=== PATIENT | male | born 1995 | race Caucasian/White ===

== ENCOUNTER 2021-01-28 11:50 | Inpatient (IN) | payer OTHER ==
[~2021-01-28] VITALS: Ht 167.6 cm; Wt 61.8 kg
[2021-01-28 14:05] VITALS: BP 132/75
--- NOTE | 2021-01-28 14:43 | NUR ---
MS RN ADMITTING NOTES PT ADMITTED TO UNIT AT 1400 AMBULATORY ACCOMPANIED BY KRISTY FROM DR ZAMORA OFFICE. PT IS A/O X4. ABLE TO MAKE NEEDS KNOWN, DENIES PAIN OR DISCOMFORTS. DENIES S/I/HI BUT VERBALIZED THAT SOMETIMES HE HAS AUDITORY HALLUCINATION, NONE AT THIS TIME. ORIENTED TO UNIT AND STAFF. PT ON ROOM AIR, BREATHING EVEN AND UNLABORED. PT IS SMOKER. NO IV ACCESS PER CLINICAL TRIAL PROTOCOL. ALL BELONGINGS CHECKED, COUNTED AND SIGNED FORM. SAFETY MEASURES INITIATED: BED PLACED IN LOWEST LOCKED POSITION WITH SR UP X2. CALL LIGHT PLACED W/IN EASY REACH OF PT. WILL CONTINUE MONITOR PT.
[2021-01-28] MEDS ORDERED: IBUPROFEN 200 MG TABLET PO PRN (15:30)
[2021-01-28] MEDS ORDERED: ZOLPIDEM TARTRATE 10 MG TABLET PO PRN (15:30)
[2021-01-28] MEDS ORDERED: MAGNESIUM HYDROXIDE 30 ML UDC PO PRN (15:30)
[2021-01-28 16:00] VITALS: BP 122/77
[2021-01-28] MEDS ORDERED: OLAN10TA3 PO (16:15)
[2021-01-28] MEDS ORDERED: ACET-2605 PO (16:15)
[2021-01-28] MEDS ORDERED: CALC355O18 PO (16:15)
[2021-01-28] MEDS ORDERED: ZOLP5TAB8 PO (16:15)
[2021-01-28] MEDS ORDERED: MAGN400O6 PO (16:15)
[2021-01-28] MEDS ORDERED: LORA-259 PO (16:15)
[2021-01-28] MEDS ORDERED: QUET200T PO (16:15)
[2021-01-28] MEDS ORDERED: IBUP-1953 PO (16:15)
--- NOTE | 2021-01-28 18:50 | NUR ---
MS RN CLOSING NOTES PATIENT WAS PLACED IN BED COMFORTABLY, BED IN LOW POSITION, CALL LIGHTS WITHIN REACH, AMBULATORY, ALERT AND ORIENTED X4, ABLE TO MAKE NEEDS KNOWN, DENIES PAIN OR DISCOMFORTS AT THIS TIME, V/S ARE WITHIN NORMAL RANGE, ON ROOM AIR, BREATHING EVEN AND UNLABORED. PT IS SMOKER. SAFETY MEASURES INITIATED: BED PLACED IN LOWEST LOCKED POSITION WITH SR UP X2. CALL LIGHT PLACED W/IN EASY REACH, KEPT CLEAN AND DRY, ALL NEEDS MET, ENDORSED TO INCOMING SHIFT.
[2021-01-28 20:00] VITALS: BP 124/74
[2021-01-28] MEDS: OLANZAPINE 5 MG PO SCH (21:49)
[2021-01-28] MEDS: SEROQUEL 100 MG PO SCH (21:49)
--- NOTE | 2021-01-29 07:15 | NUR ---
MS RN OPENING NOTES RECEIVED PATIENT AWAKE ON BED AT THIS TIME. PATIENT ALERT AND ORIENTED X 4. PATIENT ON ROOM AIR, NO SIGNS OF DISTRESS NOTED. NO COMPLAINT OF PAIN. ON MODERATE TO HIGH BACK REST. SAFETY PRECAUTIONS IN PLACE AND MAINTAINED AT ALL TIMES. BED IN LOWEST LOCKED POSITION. SAFETY PRECAUTIONS IN PLACE AND MAINTAINED AT ALL TIMES. CALL LIGHT AND TABLE WITHIN REACH AT ALL TIMES. WILL CONTINUE TO MONITOR PATIENT.
[2021-01-29 08:00] VITALS: BP 115/68
[2021-01-29 16:00] VITALS: BP 123/77
--- NOTE | 2021-01-29 18:45 | NUR ---
MS RN CLOSING NOTE PT AWAKE IN BED AT THIS TIME. PT REMAINED STABLE THROUGHOUT SHIFT. NEEDS ATTENDED. PT KEPT CLEAN AND DRY. SAFETY PRECAUTIONS IN PLACE AND MAINTAINED AT ALL TIMES. BED IN LOWEST LOCKED POSITION, HOB ELEVATED, SIDE RAILS UP FOR SAFETY. CALL LIGHT AND TABLE WITHIN REACH. WILL ENDORSE TO SUBEDITOR NURSE FOR CONTINUITY OF CARE.
--- NOTE | 2021-01-29 19:30 | NUR ---
MS RN OPENING NOTE PATIENT IS SITTING ON THE BED ON HIS PHONE, PATIENT IS CALM AT THIS TIME. BREATHING EVEN AND UNLABORED, NO S/S OF ANY DISTRESS. PATIENT DOES NOT COMPLAIN OF ANY PAIN OR DISCOMFORT. SAFETY MEASURES IN PLACE: BED IN LOCKED AND LOWEST POSITION, CALL LIGHT WITHIN REACH, SIDE RAILS UP. WILL MONITOR PATIENT CLOSELY.
[2021-01-29 20:00] VITALS: BP 126/83
[2021-01-29] MEDS: OLANZAPINE 5 MG PO SCH (20:47)
[2021-01-29] MEDS: SEROQUEL 100 MG PO SCH (20:48)
--- NOTE | 2021-01-29 20:50 | NUR ---
MS RN NOTE PATIENT REQUESTED HIS SEROQUEL AND OLANZAPINE AT AN EARLIER TIME THAN SCHEDULED. CHARGE NURSE AWARE.
--- NOTE | 2021-01-30 06:46 | NUR ---
MS RN CLOSING NOTE PATIENT IS STILL IN BED SLEEPING AT THIS TIME. TOLERATING ROOM AIR, BREATHING EVEN AND UNLABORED. PATIENT DOES NOT COMPLAIN OF ANY PAIN OR DISCOMFORT. SAFETY MEASURES MAINTAINED: BED IN LOCKED AND LOWEST POSITION, CALL LIGHT WITHIN REACH, SIDE RAILS UP. ALL NEEDS MET AND ATTENDED. ALL ORDERS CARRIED OUT. WILL ENDORSE TO DAY SHIFT NURSE FOR JOEL.
[2021-01-30 08:00] VITALS: BP 120/75
--- NOTE | 2021-01-30 08:00 | NUR ---
m/s nursery laborer: notes received pt in bed awake, a/ox4. no c/o pain or any discomfort. no distress noted. instructed to call for assistance. will continue to monitor.
--- NOTE | 2021-01-30 15:00 | NUR ---
m/s metalizer field operation: notes report given to chelsie (rn) for continuity of care.
--- NOTE | 2021-01-30 15:03 | NUR ---
RECEIVED REPORT FROM ABHIJEET RYDER AT THIS TIME. PT IN ROOM AOX4 WITH FAMILY AT BED SIDE. SAFETY MEASURES IN PLACE. WILL CONTINUE WITH PLAN OF CARE
[2021-01-30 16:00] VITALS: BP 118/77
[2021-01-30] MEDS: LORAZEPAM 1 MG TABLET FOR AGITATION/ANXIETY/HOSTILITY PO PRN (16:01)
--- NOTE | 2021-01-30 16:02 | NUR ---
PT C/O FEELING ANXIOUS. VS WNL. PER PATIENT REQUEST, ATIVAN 1MG PO Q6H FOR AGITATION/ANXIETY/HOSTILITY. ADMINISTERED AT THIS TIME PER ORDER. WILL CONTINUE TO MONITOR.
--- NOTE | 2021-01-30 18:17 | NUR ---
MS RN CLOSING NOTES PT AWAKE IN BED AT THIS TIME. PT REMAINED STABLE THROUGHOUT SHIFT. ALL PT NEEDS MET AND ATTENDED. NO C/O OF AKATHISIA, TREMORS OR EPS. NO MENTAL INSTABILITY NOTED. PT DENIES SI/HI, VISUAL OR AUDITORY HALLUCINATION. SAFETY PRECAUTIONS IN PLACE AND MAINTAINED AT ALL TIMES. BED IN LOWEST LOCKED POSITION, HOB ELEVATED, SIDE RAILS UPX2, CALL LIGHT AND TABLE WITHIN REACH. WILL ENDORSE TO APPAREL EMBROIDERY DIGITIZER NURSE FOR JOEL
--- NOTE | 2021-01-30 19:15 | NUR ---
MS RN OPENING NOTE PATIENT IN BED LAYING DOWN ON HIS PHONE, A/O X 4. BREATHING EVEN AND UNLABORED TOLERATING ROOM AIR. PATIENT IS CALM AT THIS TIME. ABLE TO MAKE NEEDS KNOWN, AMBULATORY, AND INDEPENDENT. PATIENT DOES NOT COMPLAIN OF ANY PAIN OR DISCOMFORT AT THIS TIME. SAFETY MEASURES IN PLACE: CALL LIGHT WITHIN REACH, BED IN LOCKED AND LOWEST POSITION, SIDE RAILS UP. WILL MONITOR PATIENT CLOSELY DURING THE SHIFT.
[2021-01-30 20:00] VITALS: BP 116/85
[2021-01-30] MEDS ORDERED: OLANZAPINE 5 MG PO SCH (22:00)
[2021-01-30] MEDS ORDERED: QUETIAPINE 100 MG PO SCH (22:00)
--- NOTE | 2021-01-31 06:58 | NUR ---
MS RN CLOSING NOTE PATIENT STILL ASLEEP, BREATHING EVEN AND UNLABORED. TOLERATING ROOM AIR. PATIENT WAS CALM AND COOPERATIVE THROUGH THE SHIFT. NO COMPLAINS OF PAIN OR DISCOMFORT AT THIS TIME. ALL NEEDS MET AND ATTENDED. ALL ORDERS CARRIED OUT. WILL ENDORSE TO DAY SHIFT NURSE FOR JOEL.
[2021-01-31 08:00] VITALS: BP 110/72
--- NOTE | 2021-01-31 08:00 | NUR ---
MS RN OPENING NOTE PATIENT IN BED, ALERT AND ORIENTED X4. ABLE TO MAKE NEEDS KNOWN, AMBULATORY, AND INDEPENDENT. NO SHORTNESS OF BREATH NOTED. ON ROOM AIR. PATIENT DOES NOT COMPLAIN OF ANY PAIN OR DISCOMFORT AT THIS TIME. NO EPS OR S/S OF PSYCH INSTABILITY NOTED AT THIS TIME. SAFETY MEASURES IN PLACE: CALL LIGHT WITHIN REACH, BED IN LOCKED AND LOWEST POSITION, SIDE RAILS UP. WILL MONITOR PATIENT.
[2021-01-31] MEDS ORDERED: BLOOD SUGAR DIAGNOSTIC 1 EACH STRIP IN SCH (12:00)
[2021-01-31 16:06] VITALS: BP 122/80
--- NOTE | 2021-01-31 19:28 | NUR ---
MS RN CLOSING NOTE PATIENT IS ALERT AND ORIENTED X4, PATIENT IN NO APPARENT RESPIRATORY DISTRESS NOTED. TOLERATING ROOM AIR. PATIENT WAS CALM AND COOPERATIVE THROUGH THE SHIFT. NO COMPLAINS OF PAIN OR DISCOMFORT AT THIS TIME. ALL NEEDS MET AND ATTENDED. WILL ENDORSE TO FAST FOOD SHIFT SUPERVISOR NURSE FOR JOEL.
--- NOTE | 2021-01-31 19:40 | NUR ---
MS RN OPENING NOTES PATIENT WAS LAST SEEN AWAKE IN BED. PATIENT IS ALERT AND ORIENTED X4. PATIENT IS ON ROOM AIR WITH NO RESPIRATORY DISTRESS NOTED. SAFETY PRECAUTIONS IMPLEMENTED. BED LOCKED. SIDE RAILS UP X2. CALL LIGHT IS WITHIN REACH OF THE PATIENT. WILL CONTINUE TO MONITOR THE PATIENT.
[2021-01-31 20:00] VITALS: BP 130/81
[2021-01-31] MEDS ORDERED: OLANZAPINE 5 MG PO SCH (22:00)
[2021-01-31] MEDS ORDERED: QUETIAPINE 100 MG PO SCH (22:00)
--- NOTE | 2021-02-01 07:56 | NUR ---
MS RN CLOSING NOTES PATIENT WAS LAST SEEN SLEEPING IN BED. PATIENT IS ALERT AND ORIENTED X4. PATIENT IS ON ROOM AIR WITH NO RESPIRATORY DISTRESS NOTED. SAFETY PRECAUTIONS IMPLEMENTED. BED LOCKED. SIDE RAILS UP X2. CALL LIGHT IS WITHIN REACH OF THE PATIENT. ENDORSED CARE TO DAY SHIFT NURSE.
[2021-02-01 08:00] VITALS: BP 119/74
[2021-02-01 16:00] VITALS: BP 127/72
--- NOTE | 2021-02-01 18:50 | NUR ---
MS/RN CLOSING NOTES PATIENT IN BED. A CLINICAL TRIAL PATIENT. IS ALERT AND ORIENTED X4. ABLE TO MAKE NEEDS KNOWN, AMBULATORY, AND INDEPENDENT. NO SHORTNESS OF BREATH NOTED. ON ROOM AIR. PATIENT DOES NOT COMPLAIN OF ANY PAIN OR DISCOMFORT AT THIS TIME. NO EPS OR S/S OF PSYCH INSTABILITY NOTED THROUGHOUT THE SHIFT. SAFETY MEASURES KEPT IN PLACE: CALL LIGHT WITHIN REACH, BED IN LOCKED AND LOWEST POSITION, SIDE RAILS UP. WILL ENDORSE TO THE NEXT SHIFT FOR CONTINUITY OF CARE.
[2021-02-01 20:00] VITALS: BP 115/70
[2021-02-01] MEDS: LORAZEPAM 1 MG TABLET FOR AGITATION/ANXIETY/HOSTILITY PO PRN (21:27)
--- NOTE | 2021-02-02 07:52 | NUR ---
MS RN CLOSING NOTES PATIENT WAS LAST SEEN AWAKE IN BED. PATIENT IS ALERT AND ORIENTED X4. PATIENT IS ON ROOM AIR WITH NO RESPIRATORY DISTRESS NOTED. SAFETY PRECAUTIONS IMPLEMENTED. BED LOCKED. SIDE RAILS UP X2. CALL LIGHT IS WITHIN REACH OF THE PATIENT.ENDORSED CARE TO DAY SHIFT NURSE.
[2021-02-02 08:00] VITALS: BP 120/76
--- NOTE | 2021-02-02 10:02 | NUR ---
MSRN OPENING NOTES PATIENT AWAKE IN BED. PATIENT IS ALERT AND ORIENTED X4. PATIENT IS ON ROOM AIR WITH NO RESPIRATORY DISTRESS NOTED. SAFETY PRECAUTIONS IMPLEMENTED. BED LOCKED. SIDE RAILS UP X2. CALL LIGHT IS WITHIN REACH OF THE PATIENT. WILL MONITOR PATIENT
[2021-02-02 16:00] VITALS: BP 119/73
--- NOTE | 2021-02-02 18:47 | NUR ---
MSRN CLOSING NOTES PATIENT AWAKE IN BED. PATIENT IS ALERT AND ORIENTED X4. PATIENT IS ON ROOM AIR WITH NO RESPIRATORY DISTRESS NOTED. SAFETY PRECAUTIONS IMPLEMENTED. BED LOCKED. SIDE RAILS UP X2. CALL LIGHT IS WITHIN REACH OF THE PATIENT. WILL MONITOR PATIENT
--- NOTE | 2021-02-02 19:15 | NUR ---
MS RN OPENING NOTE PATIENT IN BED SITTING AT THE EDGE OF THE BED, AWAKE USING HIS PHONE. PATIENT SEEMS TO BE CALM AT THIS TIME. EDUCATED PATIENT NOT TO EAT OR DRINK ANYTHING STARTING AT 2200. BREATHING EVEN AND UNLABORED. SAFETY MEASURES IN PLACE; SIDE RAILS UP, BED IN LOCKED AND LOWEST POSITION, CALL LIGHT WITHIN REACH. WILL MONITOR PATIENT CLOSELY.
[2021-02-02 20:00] VITALS: BP 119/63
--- NOTE | 2021-02-03 07:30 | NUR ---
RN CLOSING NOTE PATIENT IN NO ACUTE DISTRESS. SAFETY MEASURES MAINTAINED. ALL ORDERS CARRIED OUT. ENDORSED TO DAY SHIFT NURSE FOR JOEL.
[2021-02-03 08:00] VITALS: BP 121/85
--- NOTE | 2021-02-03 08:07 | NUR ---
RN OPENING NOTES RECEIVED PATIENT BED, WAKING UP. ALERT AND ORIENTED X4. NO ACUTE DISTRESS NOTED. NO C/O PAINS AT THIS TIME. SAFETY MEASURES IMPLEMENTED. BED LOCKED WITH SIDE RAILS UP X2. CALL LIGHT IS WITHIN REACH. WILL CONTINUE TO MONITOR THROUGHOUT SHIFT.
[2021-02-03 15:56] VITALS: BP 107/51
--- NOTE | 2021-02-03 16:30 | NUR ---
MS RN NOTES PATIENT AWAKE IN ROOM. RE-EDUCATED PATIENT REGARDING INVESTIGATIONAL DRUG, NPO 2.5 HOURS BEFORE AND NPO 2.5 HOURS AFTER DOSE AT 2100. PATIENT AWARE AND VERBALIZED UNDERSTANDING.
--- NOTE | 2021-02-03 18:28 | NUR ---
MS RN NOTES PATIENT AWAKE IN BED. ALERT AND ORIENTED X 4, STABLE ON ROOM AIR. BREATHING IS REGULAR AND UNLABORED. NO SIGNS OR SYMPTOMS OF DISTRESS. NO C/O PAIN AT THIS TIME. SAFETY MEASURES IN PLACE. BED AT LOWEST POSITION WITH SIDE RAILS UP X 2. CALL LIGHT IS WITHIN REACH. ALL NEEDS ATTENDED TO AND MET. WILL ENDORSE CONTINUITY OF CARE TO ONCOMING SHIFT.
--- NOTE | 2021-02-03 19:30 | NUR ---
MS RN OPENING NOTE PATIENT LAYING IN BED, AWAKE. A/ O X 4. PATIENT CALM AT THIS TIME. EDUCATED PATIENT NOT TO EAT OR DRINK ANYTHING STARTING AT 2200. BREATHING EVEN AND UNLABORED. SAFETY MEASURES IN PLACE; SIDE RAILS UP, BED IN LOCKED AND LOWEST POSITION, CALL LIGHT WITHIN REACH. WILL MONITOR PATIENT CLOSELY.
[2021-02-03 20:00] VITALS: BP 106/66
--- NOTE | 2021-02-04 07:20 | NUR ---
MS RN OPENING NOTE RECEIVED PATIENT SLEEPING IN BED. EASILY AWAKENED. A/O X4. AMBULATORY. ON ROOM AIR, TOLERATING WELL. NO SOB NOTED. IN NO APPARENT DISTRESS. DENIES ANY PAIN OR DISCOMFORT AT THIS TIME. PT REMAINS NPO UNTIL BLOOD DRAW ORDERED. SAFETY MEASURES MAINTAINED. BED IN LOWEST POSITION, BRAKES LOCKED. SIDE RAILS UP X2. CALL LIGHT WITHIN REACH. WILL CONTINUE PLAN OF CARE.
[2021-02-04 08:00] VITALS: BP 114/73
--- NOTE | 2021-02-04 08:07 | NUR ---
MS RN CLOSING NOTE PATIENT RESTING, PATIENT CALM AT THIS TIME. NO COMPLAINS OF PAIN OR DISCOMFORT. BREATHING EVEN AND UNLABORED. SAFETY MEASURES IN PLACE; SIDE RAILS UP, BED IN LOCKED AND LOWEST POSITION, CALL LIGHT WITHIN REACH. WILL MONITOR PATIENT CLOSELY.
[2021-02-04] MEDS ORDERED: LORAZEPAM 1 MG TABLET FOR AGITATION/ANXIETY/HOSTILITY PO PRN (12:00)
[2021-02-04 16:00] VITALS: BP 111/61
--- NOTE | 2021-02-04 18:04 | NUR ---
MS RN CLOSING NOTE PATIENT RESTING IN BED. A/O X4. AMBULATORY. ON ROOM AIR, TOLERATING WELL. NO SOB NOTED. NO S/S OF RESPIRATORY DISTRESS. NO REPORTS OF PAIN OR DISCOMFORT AT THIS TIME. NO REPORTS OF TREMORS AND AKATHISIA. ALL NEEDS HAVE BEEN MET AND ATTENDED. SAFETY MEASURES MAINTAINED. BED IN LOWEST POSITION, BRAKES LOCKED. SIDE RAILS UP X2. CALL LIGHT WITHIN REACH. WILL ENDORSE CONTINUITY OF CARE TO ONCOMING SHIFT.
[2021-02-04 20:00] VITALS: BP 110/83
[2021-02-04] MEDS ORDERED: [UNRECOGNIZED DRUG - OTHER] PO SCH (21:00)
[2021-02-04] MEDS ORDERED: [UNRECOGNIZED DRUG - OTHER] PO SCH (21:00)
[2021-02-04] MEDS ORDERED: [UNRECOGNIZED DRUG - OTHER] PO SCH (21:00)
--- NOTE | 2021-02-04 21:06 | NUR ---
PT CONFIRMED NPO STATUS SINCE 6:30 PM. PT VERBALIZED UNDERSTANDING TO BE NPO TILL 11:30 PM
--- NOTE | 2021-02-04 21:30 | NUR ---
ativan administered as ordered per patient request. reports he feels anxious about starting study medication. will cont to monitor.
[2021-02-04] MEDS: ZOLPIDEM TARTRATE 10 MG TABLET PO PRN (23:44)
--- NOTE | 2021-02-05 07:25 | NUR ---
MS RN OPENING NOTE RECEIVED PATIENT IN THE BED. A/O X4. ON ROOM AIR, TOLERATING WELL. NO SOB NOTED. NO S/S OF RESPIRATORY DISTRESS. DENIES ANY PAIN OR DISCOMFORT AT THIS TIME. SAFETY MEASURES MAINTAINED. BED IN LOWEST POSITION, BRAKES LOCKED. SIDE RAILS UP X2. CALL LIGHT WITHIN REACH. WILL CONTINUE PLAN OF CARE.
[2021-02-05 08:00] VITALS: BP 120/63
[2021-02-05 16:00] VITALS: BP 103/62
--- NOTE | 2021-02-05 18:16 | NUR ---
MS RN CLOSING NOTE PATIENT SITTING IN THE BED. A/O X4. AMBULATORY WITH STEADY GAIT. ON ROOM AIR, SATURATING WELL AT 99%. NO SOB NOTED. NO S/S OF RESPIRATORY DISTRESS. NO REPORTS OF PAIN OR DISCOMFORT AT THIS TIME. NO REPORTS OF TREMORS AND AKATHISIA. ABLE TO MAKE NEEDS KNOWN. SAFETY MEASURES MAINTAINED. BED IN LOWEST POSITION, BRAKES LOCKED. SIDE RAILS UP X2. CALL LIGHT WITHIN REACH. WILL ENDORSE CONTINUITY OF CARE TO ONCOMING SHIFT.
--- NOTE | 2021-02-05 20:00 | NUR ---
MS RN OPENING NOTES RECEIVED RESIDENT AWAKE IN BED, BED IN LOW POSITION, CALL LIGHTS WITHIN REACH, NO COMPLAIN OF PAIN AND DISCOMFORT AT THIS TIME, PATIENT IS ALERT AND AMBULATORY, REMIND THE RESIDENT TO NOT TO EAT 2.5 HOURS BEFORE AND AFTER MEDICATION, AND TO USE CALL LIGHTS WHEN NEED AN SSISTANTANCE, WILL CONTINUE TO MONITOR.
[2021-02-05] MEDS: [UNRECOGNIZED DRUG - OTHER] PO SCH (21:00)
[2021-02-05] MEDS: [UNRECOGNIZED DRUG - OTHER] PO SCH (21:00)
[2021-02-05] MEDS: [UNRECOGNIZED DRUG - OTHER] PO SCH (21:00)
[2021-02-05] MEDS: ZOLPIDEM TARTRATE 10 MG TABLET PO PRN (22:08)
--- NOTE | 2021-02-05 22:08 | NUR ---
RN NOTES PT. asked for sleeping pill- Ambien 10 mg po given as ordered, V/S stable
--- NOTE | 2021-02-06 06:52 | NUR ---
MS RN CLOSING NOTES RECEIVED RESIDENT AWAKE, BED IN LOW POSITION, CALL LIGHTS WITHIN REACH, NO COMPLAIN OF PAIN AND DISCOMFORT, ALERT ORIENTED AND AMBULATORY, REMIND THE RESIDENT TO USE CALL LIGHTS WHEN NEED AN SSISTATANCE, ENDORSE TO INCOMING SHIFT.
--- NOTE | 2021-02-06 07:12 | NUR ---
MS RN NOTES PATIENT IN BED ALERT ORIENTED X 4.NO ACUTE DISTRESS NOTED. BREATHING UNLABORED .DENIED ANY PAIN AT THIS TIME.SAFETY MEASURES IN PLACE, CALL LIGHT WITHIN REACH. WILL CONTINUE TO MONITOR ACCORDINGLY.
[2021-02-06 07:51] VITALS: BP 90/44
[2021-02-06 15:48] VITALS: BP 110/66
--- NOTE | 2021-02-06 18:56 | NUR ---
MS RN NOTES PATIENT IN BED ALERT ORIENTED X 4.NO ACUTE DISTRESS NOTED. BREATHING UNLABORED .DENIED ANY PAIN AT THIS TIME.NEEDS ATTENDED AND ANTICIPATED .SAFETY MEASURES IN PLACE, CALL LIGHT WITHIN REACH. WILL ENDORSE TO NIGHT NURSE FOR CONTINUITY OF CARE.
[2021-02-06 20:00] VITALS: BP 121/70
--- NOTE | 2021-02-06 20:05 | NUR ---
MS/RN OPENING NOTE RECEIVED PATIENT RESTING IN BED. AWAKE, ALERT AND ORIENTED X 4. ABLE TO MAKE NEEDS KNOWN. NO COMPLAINTS OF PAIN AT THIS TIME. NO IV ACCESS NOTED. CONTINUES ON CLINICAL TRIAL AND INVESTIGATIONAL MEDICATIONS. CONTINUES ON REGULAR DIET. PATIENT AMBULATORY WITH STEADY GAIT. CALL LIGHT WITHIN REACH. ASPIRATION, FALL AND SAFETY PRECAUTIONS MAINTAINED. WILL CONTINUE TO MONITOR.
[2021-02-06] MEDS: [UNRECOGNIZED DRUG - OTHER] PO SCH (22:01)
[2021-02-06] MEDS: [UNRECOGNIZED DRUG - OTHER] PO SCH (22:01)
[2021-02-06] MEDS: [UNRECOGNIZED DRUG - OTHER] PO SCH (22:01)
--- NOTE | 2021-02-07 06:35 | NUR ---
MS/RN CLOSING NOTE PATIENT CURRENTLY SLEEPING IN BED. ALERT AND ORIENTED X 4. ABLE TO MAKE NEEDS KNOWN. NO COMPLAINTS OF PAIN AT THIS TIME. NO IV ACCESS NOTED. CONTINUES ON CLINICAL TRIAL AND INVESTIGATIONAL MEDICATIONS. CONTINUES ON REGULAR DIET. PATIENT AMBULATORY WITH STEADY GAIT. CALL LIGHT WITHIN REACH. ASPIRATION, FALL AND SAFETY PRECAUTIONS MAINTAINED. WILL ENDORSE PLAN OF CARE TO ONCOMING SHIFT.
--- NOTE | 2021-02-07 07:14 | NUR ---
MS RN OPENING NOTE RECEIVED PATIENT RESTING IN BED. AWAKE, ALERT AND ORIENTED X 4. ABLE TO MAKE NEEDS KNOWN. NO COMPLAINTS OF PAIN AT THIS TIME. NO IV ACCESS NOTED. CONTINUES ON CLINICAL TRIAL AND INVESTIGATIONAL MEDICATIONS. CONTINUES ON REGULAR DIET. PATIENT AMBULATORY WITH STEADY GAIT. CALL LIGHT WITHIN REACH. FALL AND SAFETY PRECAUTIONS MAINTAINED. WILL CONTINUE TO MONITOR.
[2021-02-07 08:00] VITALS: BP 125/74
[2021-02-07 16:00] VITALS: BP 100/58
--- NOTE | 2021-02-07 18:42 | NUR ---
MS/RN CLOSING NOTE PATIENT CURRENTLY SLEEPING IN BED. ALERT AND ORIENTED X 4. PATIENT IS BREATHING EVENLY AND UNLABORED STABLE ON ROOM AIR. PT ABLE TO MAKE NEEDS KNOWN. NO COMPLAINTS OF PAIN AT THIS TIME. NO IV ACCESS NOTED. CONTINUES ON CLINICAL TRIAL AND INVESTIGATIONAL MEDICATIONS. CONTINUES ON REGULAR DIET. PATIENT AMBULATORY WITH STEADY GAIT. CALL LIGHT WITHIN REACH. ASPIRATION, FALL AND SAFETY PRECAUTIONS MAINTAINED. WILL ENDORSE TO NEXT SHIFT
[2021-02-07] MEDS: ACETAMINOPHEN ES 500 MG TABLET PO PRN (19:55)
[2021-02-07 20:00] VITALS: BP 104/67
--- NOTE | 2021-02-07 20:00 | NUR ---
MS RN OPENING NOTE PATIENT LAYING IN BED, ALERT & ORIENTED X4. PATIENT STABLE ON ROOM AIR, NO SIGNS OF DISTRESS OR SHORTNESS OF BREATH NOTED. PATIENT ABLE TO MAKE NEEDS KNOWN. PATIENT REPORTING HEADACHE, TYLENOL GIVEN ORDERED. NO IV ACCESS NOTED. SAFETY MEASURES IN PLACE, CALL LIGHT WITHIN REACH, BED LOCKED IN LOWEST POSITION. WILL CONTINUE PLAN OF CARE. WILL CONTINUE TO MONITOR
[2021-02-07] MEDS: [UNRECOGNIZED DRUG - OTHER] PO SCH (21:06)
[2021-02-07] MEDS: [UNRECOGNIZED DRUG - OTHER] PO SCH (21:06)
[2021-02-07] MEDS: [UNRECOGNIZED DRUG - OTHER] PO SCH (21:06)
--- NOTE | 2021-02-08 06:45 | NUR ---
MS CLOSING NOTE PATIENT IN BED, ALERT & ORIENTED X4. PATIENT STABLE ON ROOM AIR, NO SIGNS OF DISTRESS OR SHORTNESS OF BREATH NOTED. PATIENT ABLE TO MAKE NEEDS KNOWN. MEDICATIONS GIVEN ORDERED. NEEDS MET THROUGHOUT SHIFT. NO IV ACCESS NOTED. SAFETY MEASURES IN PLACE, CALL LIGHT WITHIN REACH, BED LOCKED IN LOWEST POSITION. WILL CONTINUE PLAN OF CARE. WILL ENDORSE TO DIRECTOR OF CLINICAL APPLICATIONS NURSE FOR CONTINUITY OF CARE
--- NOTE | 2021-02-08 18:33 | NUR ---
MS/RN CLOSING NOTE PATIENT CURRENTLY AWAKE IN BED. PATIENT IS ALERT AND ORIENTED X 4. PATIENT IS BREATHING EVENLY AND UNLABORED STABLE ON ROOM AIR. PT ABLE TO MAKE NEEDS KNOWN. NO COMPLAINTS OF PAIN AT THIS TIME. NO IV ACCESS NOTED. CONTINUES ON CLINICAL TRIAL AND INVESTIGATIONAL MEDICATIONS. CONTINUES ON REGULAR DIET. PATIENT AMBULATORY WITH STEADY GAIT. CALL LIGHT WITHIN REACH. ASPIRATION, FALL AND SAFETY PRECAUTIONS MAINTAINED. WILL ENDORSE TO NEXT SHIFT
--- NOTE | 2021-02-08 19:30 | NUR ---
MS OPENING NOTE PATIENT IN ROOM, ALERT & ORIENTED X 4. PATIENT STABLE ON ROOM AIR, NO SIGNS OF DISTRESS OR SHORTNESS OF BREATH NOTED. NO REPORTS OF PAIN AT THIS TIME. NO IV ACCESS. PATIENT ABLE TO MAKE NEEDS KNOWN. SAFETY MEASURES IN PLACE, BED LOCKED IN LOWEST POSITION, SIDE RAILS UP X 2, CALL LIGHT WITHIN REACH. WILL CONTINUE TO MONITOR AND CONTINUE PLAN OF CARE
[2021-02-08 20:00] VITALS: BP 116/67
[2021-02-08] MEDS: [UNRECOGNIZED DRUG - OTHER] PO SCH (21:15)
[2021-02-08] MEDS: [UNRECOGNIZED DRUG - OTHER] PO SCH (21:15)
[2021-02-08] MEDS: [UNRECOGNIZED DRUG - OTHER] PO SCH (21:15)
--- NOTE | 2021-02-09 07:00 | NUR ---
MS CLOSING NOTE PATIENT IN BED, ALERT & ORIENTED X4. PATIENT STABLE ON ROOM AIR, NO SIGNS OF DISTRESS OR SHORTNESS OF BREATH NOTED. PATIENT ABLE TO MAKE NEEDS KNOWN. MEDICATIONS GIVEN ORDERED. NEEDS MET THROUGHOUT SHIFT. NO IV ACCESS NOTED. SAFETY MEASURES IN PLACE, CALL LIGHT WITHIN REACH, BED LOCKED IN LOWEST POSITION. WILL CONTINUE PLAN OF CARE. WILL ENDORSE TO VIRTUALIZATION CONSULTANT NURSE FOR CONTINUITY OF CARE
--- NOTE | 2021-02-09 07:16 | NUR ---
MS RN OPENING NOTE PATIENT RESTING IN BED. AWAKE, ALERT AND ORIENTED X 4. ABLE TO MAKE NEEDS KNOWN. NO COMPLAINTS OF PAIN AT THIS TIME. NO IV ACCESS NOTED. CONTINUES ON CLINICAL TRIAL AND INVESTIGATIONAL MEDICATIONS. CONTINUES ON REGULAR DIET. PATIENT AMBULATORY WITH STEADY GAIT. CALL LIGHT WITHIN REACH. FALL AND SAFETY PRECAUTIONS MAINTAINED. WILL CONTINUE TO MONITOR.
[2021-02-09 08:00] VITALS: BP 100/64
[2021-02-09 16:00] VITALS: BP 99/58
[2021-02-09 20:00] VITALS: BP 108/70
[2021-02-09] MEDS: [UNRECOGNIZED DRUG - OTHER] PO SCH (20:57)
[2021-02-09] MEDS: [UNRECOGNIZED DRUG - OTHER] PO SCH (20:57)
[2021-02-09] MEDS: [UNRECOGNIZED DRUG - OTHER] PO SCH (20:57)
--- NOTE | 2021-02-09 21:04 | NUR ---
MS RN NOTES: REMINDED PATIENT NO FOOD 2.5 HOURS BEFORE AND AFTER MEDS, PATIENT VERBALIZED UNDERSTANDING.
[2021-02-10 08:00] VITALS: BP 102/53
--- NOTE | 2021-02-10 19:00 | NUR ---
MS RN OPENING NOTES: RECEIVED PATIENT INSIDE THE ROOM,PATIENT IS CALM AND COOPERATIVE. A/O X4. NO S/S OF DISTRESS NOTED. NO COMPLAIN OF PAIN.
[2021-02-10 19:20] VITALS: BP 116/70
[2021-02-10 20:00] VITALS: BP 116/70
[2021-02-10] MEDS: [UNRECOGNIZED DRUG - OTHER] PO SCH (20:55)
[2021-02-10] MEDS: [UNRECOGNIZED DRUG - OTHER] PO SCH (20:55)
[2021-02-10] MEDS: [UNRECOGNIZED DRUG - OTHER] PO SCH (20:55)
--- NOTE | 2021-02-11 07:20 | NUR ---
MS RN OPENING NOTES RECEIVED PATIENT AWAKE ON BED AT THIS TIME. PATIENT ALERT AND ORIENTED X 4. PATIENT ON ROOM AIR, NO SIGNS OF DISTRESS NOTED. NO COMPLAINT OF PAIN. ON MODERATE TO HIGH BACK REST. SAFETY PRECAUTIONS IN PLACE AND MAINTAINED AT ALL TIMES. BED IN LOWEST LOCKED POSITION. CALL LIGHT AND TABLE WITHIN REACH AT ALL TIMES. WILL CONTINUE TO MONITOR PATIENT.
[2021-02-11 08:00] VITALS: BP 109/92
[2021-02-11] MEDS ORDERED: ZOLPIDEM TARTRATE 10 MG TABLET PO PRN (12:00)
[2021-02-11 16:00] VITALS: BP 105/72
--- NOTE | 2021-02-11 17:00 | NUR ---
RN NOTES INVESTIGATIONAL MEDS DELIVERED BY [facility], SIGNED BY ME AND CO-SIGNED BY ANOTHER RN. INFORMED CHARGE NURSE AND ENDORSED FOR SAFE-KEEPING.
--- NOTE | 2021-02-11 19:29 | NUR ---
MS RN CLOSING NOTE PT AWAKE IN BED AT THIS TIME. PT REMAINED STABLE THROUGHOUT SHIFT. NEEDS ATTENDED. PT KEPT CLEAN AND DRY. SAFETY PRECAUTIONS IN PLACE AND MAINTAINED AT ALL TIMES. BED IN LOWEST LOCKED POSITION, HOB ELEVATED, SIDE RAILS UP FOR SAFETY. CALL LIGHT AND TABLE WITHIN REACH. WILL ENDORSE TO EXPLOSIVES WORKER NURSE FOR CONTINUITY OF CARE.
--- NOTE | 2021-02-11 19:53 | NUR ---
MS RN NOTES PT AWAKE IN BED AT THIS TIME. ALERT AND ORIENTED X4. NEEDS ATTENDED TO AT THIS TIME PT KEPT CLEAN AND DRY. PT ON ROOM AIR TOLERATING WELL. SAFETY PRECAUTIONS IN PLACE AND MAINTAINED AT ALL TIMES. BED IN LOWEST LOCKED POSITION, HOB ELEVATED, SIDE RAILS UP FOR SAFETY. CALL LIGHT AND TABLE WITHIN REACH. WILL CONTINUE TO MONITOR.
[2021-02-11 20:00] VITALS: BP 105/57
[2021-02-11] MEDS: [UNRECOGNIZED DRUG - OTHER] PO SCH (21:44)
[2021-02-11] MEDS: [UNRECOGNIZED DRUG - OTHER] PO SCH (21:44)
[2021-02-11] MEDS: [UNRECOGNIZED DRUG - OTHER] PO SCH (21:44)
[2021-02-11] MEDS: LORAZEPAM 1 MG TABLET FOR AGITATION/ANXIETY/HOSTILITY PO PRN (23:13)
--- NOTE | 2021-02-12 07:00 | NUR ---
MS RN NOTES PT AWAKE IN BED AT THIS TIME. ALERT AND ORIENTED X4. NEEDS ATTENDED TO AT THIS TIME PT KEPT CLEAN AND DRY. PT ON ROOM AIR TOLERATING WELL. SAFETY PRECAUTIONS IN PLACE AND MAINTAINED AT ALL TIMES. BED IN LOWEST LOCKED POSITION, HOB ELEVATED, SIDE RAILS UP FOR SAFETY. CALL LIGHT AND TABLE WITHIN REACH. WILL ENDORSE CARE TO DAY SHIFT.
--- NOTE | 2021-02-12 08:00 | NUR ---
RN OPENING NOTE PT CURRENTLY IN BED RESTING. A/O X3 AND GERMAN SPEAKING. NO COMPLAINT OF PAIN OR NAUSEA. CURRENTLY ON RA WITH NO SOB OR RESPIRATORY DISTRESS PRESENT. SELF AMBULATORY WITH BATHROOM PRIVILEGES. SKIN IS INTACT. NO EDEMA PRESENT. NO IV PRESENT DUE TO CLINICAL TRIAL STATUS. SAFETY MEASURES IN PLACE. SIDE RAILS RAISED. BED LOWERED. CALL LIGHT WITHIN REACH. WILL CONTINUE TO MONITOR.
--- NOTE | 2021-02-12 18:28 | NUR ---
RN CLOSING NOTE PT CURRENTLY IN BED RESTING. A/O X3 AND MARTINIQUAIS SPEAKING. NO COMPLAINT OF PAIN OR NAUSEA. CURRENTLY ON RA WITH NO SOB OR RESPIRATORY DISTRESS PRESENT. SELF AMBULATORY WITH BATHROOM PRIVILEGES. SKIN IS INTACT. NO EDEMA PRESENT. NO IV PRESENT DUE TO CLINICAL TRIAL STATUS. SAFETY MEASURES IN PLACE. SIDE RAILS RAISED. BED LOWERED. CALL LIGHT WITHIN REACH. REPORT TO BE GIVEN TO NIGHT NURSE FOR JOEL.
--- NOTE | 2021-02-12 20:00 | NUR ---
MS RN OPENING NOTE PATIENT ALERT AND ORIENTED X 4. PATIENT ABLE TO MAKE NEEDS KNOWN. PATIENT STABLE ON ROOM AIR, NO SIGNS OF DISTRESS OR SHORTNESS OF BREATH NOTED. NO REPORTS OF PAIN AT THIS TIME. PATIENT IS SELF AMBULATORY AND STEADY WHEN AMBULATING. SAFETY MEASURES IN PLACE, CALL LIGHT WITHIN REACH, BED LOCKED IN LOWEST POSITION, SIDE RAILS UP X 2. WILL CONTINUE TO MONITOR. WILL CONTINUE PLAN OF CARE
[2021-02-12] MEDS: [UNRECOGNIZED DRUG - OTHER] PO SCH (21:03)
[2021-02-12] MEDS: [UNRECOGNIZED DRUG - OTHER] PO SCH (21:03)
[2021-02-12] MEDS: [UNRECOGNIZED DRUG - OTHER] PO SCH (21:03)
[2021-02-12 21:34] VITALS: BP 127/52
[2021-02-12 21:38] VITALS: BP 152/97
[2021-02-12 21:42] VITALS: BP 152/97
--- NOTE | 2021-02-13 06:44 | NUR ---
MS RN CLOSING NOTE PATIENT RESTING, A/O X 4. PATIENT ABLE TO MAKE NEEDS KNOWN. NO SIGNS OF DISTRESS OR SHORTNESS OF BREATH NOTED. NO REPORTS OF PAIN AT THIS TIME. MEDICATIONS GIVEN ORDERED. PATIENT'S NEEDS MET THROUGHOUT SHIFT. SAFETY MEASURES IN PLACE, CALL LIGHT WITHIN REACH, BED LOCKED IN LOWEST POSITION, SIDE RAILS UP X 2. WILL ENDORSE TO DAY SHIFT NURSE FOR CONTINUITY OF CARE
[2021-02-13 08:00] VITALS: BP 115/57
[2021-02-13 16:00] VITALS: BP 141/89
--- NOTE | 2021-02-13 19:30 | NUR ---
MS RN OPENING NOTE PATIENT RESTING IN ROOM, A/O X 4, PATIENT ABLE TO MAKE NEEDS KNOWN. PATIENT STABLE ON ROOM AIR, NO S/S OF DISTRESS OR SHORTNESS OF BREATH NOTED. NO REPORTS OF PAIN AT THIS TIME. WILL CONTINUE TO MONITOR. SAFETY MEASURES IN PLACE, BED LOCKED IN LOWEST POSITION, AND CALL LIGHT WITHIN REACH. WILL CONTINUE PLAN OF CARE
[2021-02-13 20:00] VITALS: BP 143/79
[2021-02-13] MEDS: [UNRECOGNIZED DRUG - OTHER] PO SCH (21:01)
[2021-02-13] MEDS: [UNRECOGNIZED DRUG - OTHER] PO SCH (21:01)
[2021-02-13] MEDS: [UNRECOGNIZED DRUG - OTHER] PO SCH (21:01)
--- NOTE | 2021-02-14 06:49 | NUR ---
MS RN CLOSING NOTE PATIENT A/O X 4, PATIENT ABLE TO MAKE NEEDS KNOWN. NO SIGNS OF DISTRESS OR SHORTNESS OF BREATH NOTED. NO REPORTS OF PAIN AT THIS TIME. MEDICATIONS GIVEN ORDERED. PATIENT'S NEEDS MET THROUGHOUT SHIFT. SAFETY MEASURES IN PLACE, CALL LIGHT WITHIN REACH, BED LOCKED IN LOWEST POSITION, SIDE RAILS UP X 2. WILL ENDORSE TO DAY SHIFT NURSE FOR CONTINUITY OF CARE
--- NOTE | 2021-02-14 07:15 | NUR ---
MS RN OPENING NOTES RECEIVED PATIENT AWAKE, ALERT AND ORIENTED X 4. PATIENT ON ROOM AIR, NO SIGNS OF DISTRESS NOTED. NO COMPLAINT OF PAIN. ON MODERATE TO HIGH BACK REST. SAFETY PRECAUTIONS IN PLACE AND MAINTAINED AT ALL TIMES. BED IN LOWEST LOCKED POSITION. SAFETY PRECAUTIONS IN PLACE AND MAINTAINED AT ALL TIMES. CALL LIGHT AND TABLE WITHIN REACH AT ALL TIMES. WILL CONTINUE TO MONITOR PATIENT.
[2021-02-14 08:00] VITALS: BP 128/91
[2021-02-14 20:00] VITALS: BP 114/81
[2021-02-14] MEDS: [UNRECOGNIZED DRUG - OTHER] PO SCH (20:59)
[2021-02-14] MEDS: [UNRECOGNIZED DRUG - OTHER] PO SCH (21:00)
[2021-02-14] MEDS: [UNRECOGNIZED DRUG - OTHER] PO SCH (21:00)
[2021-02-15 06:46] VITALS: BP 114/81
--- NOTE | 2021-02-15 07:33 | NUR ---
MS RN CLOSING NOTES PATIENT WAS LAST SEEN RESTING IN BED. PATIENT IS ALERT AND ORIENTED X4. PATIENT IS ON ROOM AIR WITH NO RESPIRATORY DISTRESS NOTED. SAFETY PRECAUTIONS IMPLEMENTED. BED LOCKED. SIDE RAILS UP, AND CALL LIGHT IS WITHIN REACH OF THE PATIENT. ENDORSED CARE TO THE DAY SHIFT NURSE.
--- NOTE | 2021-02-15 13:30 | NUR ---
RN NOTE PATIENT COMPLAINED OF ANXIETY AND ANXIOUS FEELING. PATIENT ASKED FOR PRN ANXIETY MEDICATION. GAVE PRN MEDICATION ORDERED
[2021-02-15] MEDS: LORAZEPAM 1 MG TABLET FOR AGITATION/ANXIETY/HOSTILITY PO PRN (13:39)
--- NOTE | 2021-02-15 19:47 | NUR ---
MS MALDONADO NOTES PATIENT WAS LAST SEEN AWAKE IN HIS ROOM. PATIENT IS ALERT AND ORIENTED X4. PATIENT IS ON ROOM AIR WITH NO RESPIRATORY DISTRESS NOTED. SAFETY PRECAUTIONS IMPLEMENTED. BED LOCKED. SIDE RAILS UP X2. CALL LIGHT IS WITHIN REACH OF THE PATIENT. WILL CONTINUE TO MONITOR THE PATIENT. Addendum: 02/15/21 at 1948 by JESÚS CRUZ RN MS MALDONADO OPENING NOTES
[2021-02-15 20:00] VITALS: BP 112/83
[2021-02-15] MEDS: [UNRECOGNIZED DRUG - OTHER] PO SCH (21:00)
[2021-02-15] MEDS: [UNRECOGNIZED DRUG - OTHER] PO SCH (21:00)
[2021-02-15] MEDS: [UNRECOGNIZED DRUG - OTHER] PO SCH (21:01)
--- NOTE | 2021-02-16 07:20 | NUR ---
MS MALDONADO NOTES PATIENT WAS LAST SEEN AWAKE IN HIS ROOM. PATIENT IS ALERT AND ORIENTED X4. PATIENT IS ON ROOM AIR WITH NO RESPIRATORY DISTRESS NOTED. SAFETY PRECAUTIONS IMPLEMENTED. BED LOCKED. SIDE RAILS UP X2. CALL LIGHT IS WITHIN REACH OF THE PATIENT. WILL ENDORSE CARE TO DAY SHIFT NURSE. Addendum: 02/16/21 at 0803 by JESÚS CRUZ RN MS MALDONADO CLOSING NOTES
[2021-02-16 08:00] VITALS: BP 113/74
--- NOTE | 2021-02-16 09:00 | NUR ---
RN NOTES RECEIVED A CALL FROM DR ZAMORA. TELEPHONE ORDER WITH READ BACK FOR ROUTINE ATIVAN 1MG BID FOR ANXIETY. WILL CONTINUE TO MONITOR
[2021-02-16] MEDS: LORAZEPAM 1 MG TABLET PO SCH ×2 (09:20→13:15)
[2021-02-16 16:00] VITALS: BP 115/68
--- NOTE | 2021-02-16 19:32 | NUR ---
MS RN NOTES PATIENT CURRENTLY AWAKE IN BED. PATIENT IS ALERT AND ORIENTED X 4. PATIENT IS BREATHING EVENLY AND UNLABORED STABLE ON ROOM AIR. PT ABLE TO MAKE NEEDS KNOWN. NO COMPLAINTS OF PAIN AT THIS TIME. NO IV ACCESS NOTED. PATIENT AMBULATORY WITH STEADY GAIT. CALL LIGHT WITHIN REACH. ASPIRATION, FALL AND SAFETY PRECAUTIONS MAINTAINED. WILL CONTINUE TO MONITOR.
[2021-02-16 20:00] VITALS: BP 108/72
[2021-02-16] MEDS: [UNRECOGNIZED DRUG - OTHER] PO SCH (21:02)
[2021-02-16] MEDS: [UNRECOGNIZED DRUG - OTHER] PO SCH (21:02)
[2021-02-16] MEDS: [UNRECOGNIZED DRUG - OTHER] PO SCH (21:02)
--- NOTE | 2021-02-17 06:50 | NUR ---
MS RN NOTES PATIENT CURRENTLY AWAKE IN BED. PATIENT IS ALERT AND ORIENTED X 4. PATIENT IS BREATHING EVENLY AND UNLABORED STABLE ON ROOM AIR. PT ABLE TO MAKE NEEDS KNOWN. NO COMPLAINTS OF PAIN AT THIS TIME. NO IV ACCESS NOTED. PATIENT AMBULATORY WITH STEADY GAIT. CALL LIGHT WITHIN REACH. ASPIRATION, FALL AND SAFETY PRECAUTIONS MAINTAINED. ALL DUE MEDICATIONS GIVEN AND TOLERATED WELL.WILL ENDORSE CARE TO DAY SHIFT NURSE.
--- NOTE | 2021-02-17 07:15 | NUR ---
MS RN OPENING NOTE PATIENT RESTING IN BED. A/O X 4. AMBULATORY WITH STEADY GAIT. DENIES ANY PAIN OR DISCOMFORT AT THIS TIME. CURRENTLY ON A REGULAR DIET. SAFETY MEASURES MAINTAINED. BED IN LOWEST POSITION, BRAKES LOCKED. SIDE RAILS UP X2. CALL LIGHT WITHIN REACH. WILL CONTINUE PLAN OF CARE.
[2021-02-17] MEDS: LORAZEPAM 1 MG TABLET PO SCH ×2 (09:17→15:19)
[2021-02-17 16:00] VITALS: BP 131/81
--- NOTE | 2021-02-17 18:18 | NUR ---
MS JOEL CLOSING NOTE PATIENT RESTING IN BED. A/O X 4. AMBULATORY WITH STEADY GAIT. NO REPORTS OF ANY PAIN OR DISCOMFORT AT THIS TIME. CURRENTLY ON A REGULAR DIET. ALL DUE MEDS GIVEN ORDERED. ALL NEEDS HAVE BEEN MET AND ATTENDED. REMINDED THE PT THAT LORAZEPAM AND AMBIEN WILL BE HELD AT 2200 AND PT WILL BE ON NPO STARTING 2200 TONIGHT UNTIL 1200 THE NEXT DAY. SAFETY MEASURES MAINTAINED. BED IN LOWEST POSITION, BRAKES LOCKED. SIDE RAILS UP X2. CALL LIGHT WITHIN REACH. WILL ENDORSE CONTINUITY OF CARE TO ONCOMING SHIFT. Addendum: 02/17/21 at 1937 by STEPHANE GUZMAN RN correction: LORAZEPAM AND AMBIEN WILL BE HELD AT 1999
--- NOTE | 2021-02-17 19:35 | NUR ---
RN OPENING NOTES: RECEIVED RESIDENT AWAKE IN BED, A/O X4 AMBULATORY, SKIN IS INTACT, NO SKIN ISSUES WAS OBSERVE, ABLE TO MAKE NEEDS KNOWN, ON BRP, BED IN LOW POSITION, CALL LIGHTS WITHIN REACH, RESIDENT WAS REMINDED NOT TO TAKE FOOD FRO 2.5 HOURS BEFORE AND AFTER DOSING, NO ATIVAN OR AMBIEN AFTER 1999, RESIDENT WAS MADE AWARE OF BEING NPO AT 2200 UNITL 1200 NN THE FOLLOWING DAY, KEPT CLEAN AND DRY, REMND TO USE CALL LIGHTS WHEN NEEDED ASSISTANCE, WILL CONTINUE TO MONITOR.
[2021-02-17 20:00] VITALS: BP 132/79
[2021-02-17] MEDS: [UNRECOGNIZED DRUG - OTHER] PO SCH (21:00)
[2021-02-17] MEDS: [UNRECOGNIZED DRUG - OTHER] PO SCH (21:00)
[2021-02-17] MEDS: [UNRECOGNIZED DRUG - OTHER] PO SCH (21:00)
--- NOTE | 2021-02-18 02:18 | NUR ---
RN NOTES: PATIENT LEFT THE FACILITY @2230, AT 0030 NOTIFY THE CN THAT PATIENT WAS NOT YET BACK FROM HIS ROOM, 0120 PROFILE SAW OPERATOR WAS MADE AWARE, 0200 AM CALLED THE PATIENT TO HIS PHONE, PATIENT REPLIED THAT HE WAS ABOUT TO GO TO [facility] THAT HE WAS AT 7-11 AND COUGHING UP BLOOD, A WOMAN ASSIST HIM TO THE HOSPITAL, CN SPOKE TO THE PATIENT, AND EXPLAINED THAT INSTEAD OF GOING THERE GO STRAIGHT TO ER OF [facility]. PATIENT AGREED, 021 PROFILE SAW OPERATOR WAS MADE AWARE, 021 SPOKE TO ER STAFF, ADVISE PATIENT TO SEND HIM BACK TO HIS ROOM, 022 CALLED RESIDENT BUT RECEIVED NO ANSWER ON HIS PHONE, AND CANT EVEN LEAVE MESSAGE ON HIS PHONE.
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
--- NOTE | 2021-02-18 07:02 | NUR ---
RN NOTES: PATIENT CAME BACK AT 0630, NO COMPLAIN OF PAIN STAY IN ROOM RIGHT NOW, REMIND PATIENT TO STAY NPO, PATIENT COMPLAIN OF RASHES ABDOMINAL AREA AND SHOW PICTURE OF VOMITUS STATE THAT ITS HAS BLOOD. TOLD PT THAT WE CALLED DR KNIGHT AWAITING FOR REPLY, ENDORSE TO INCOMING SHIFT.
--- NOTE | 2021-02-18 07:04 | NUR ---
RN OPENING NOTES: PATIENT LEFT AT 2230 AND CAME BACK AT 0630 REMIND THE PATIENT THAT HES STILL ON NPO, IN CLOSE COORDINATION WITH PATIENT, CN, NURSE MUD MIXER HELPER AND KRISTY CLINICAL COORDINATOR WAS MADE AWARE, DR ZAMORA NOTIFIED AWAITING FOR REPLY, PLEASE SEE NURSES NOTES: ENDORSE TO INCOMING SHIFT.
--- NOTE | 2021-02-18 07:50 | NUR ---
MS RN OPENING NOTE PT IS AWAKE, A/OX4, PT DENIES PAIN, PT IS RESPONSIVE AND COOPERATIVE, PT STATES THAT HE WANTS TO GO HOME. NO FORM OF DISTRESS, CALL LIGHT WITHIN REACH. PT WAS PICKED UP BY OFFICE MEDICAL STAFF. BED IN LOW POSITION.
[2021-02-18 08:00] VITALS: BP 150/87
[2021-02-18] MEDS ORDERED: LORAZEPAM 1 MG TABLET FOR AGITATION/ANXIETY/HOSTILITY PO PRN (12:00)
--- NOTE | 2021-02-18 12:45 | NUR ---
MS RN CLOSING NOTE PT CAME BACK FROM OUTSIDE.
[2021-02-18] MEDS: LORAZEPAM 1 MG TABLET PO SCH (14:54)
[2021-02-18 16:00] VITALS: BP 114/53
--- NOTE | 2021-02-18 18:18 | NUR ---
MS RN CLOSING NOTE PT IS CALM AND RESTING ON HIS BED. NO FORM OF DISTRESS WILL ENDORSE TO VICE PRESIDENT NETWORK DEVELOPMENT TO CONTINUE WITH CARE
[2021-02-18] MEDS: ACETAMINOPHEN ES 500 MG TABLET PO PRN (18:39)
--- NOTE | 2021-02-18 19:30 | NUR ---
MS RN OPENING NOTE RECEIVED PATIENT IN BED. A/OX4. TOLERATING ROOM AIR. NO S/S SOB NOTED. NO C/O PAIN. IN NO APPARENT DISTRESS. NO IV ACCESS NOTED. BED IS LOW AND LOCKED, HOB FLAT, SIDE RIALS UP X2, CALL LIGHT WITHIN REACH. WILL CONTINUE TO MONITOR THROUGHOUT SHIFT.
[2021-02-18 20:00] VITALS: BP 107/67
[2021-02-18] MEDS: [UNRECOGNIZED DRUG - OTHER] PO SCH (20:57)
[2021-02-18] MEDS: [UNRECOGNIZED DRUG - OTHER] PO SCH (20:57)
[2021-02-18] MEDS: [UNRECOGNIZED DRUG - OTHER] PO SCH (20:57)
--- NOTE | 2021-02-19 06:51 | NUR ---
MS RN CLOSING NOTE PATIENT RESTING IN BED. NO RESP DISTRESS. NO ADVERSE REACTIONS NOTED. NO IV ACCESS. BED REMAINS LOW AND LOCKED, HOB FLAT, SIDE RIALS UP X2, CALL LIGHT WITHIN REACH. WILL ENDORSE TO ONCOMING SHIFT.
--- NOTE | 2021-02-19 07:00 | NUR ---
MS RN NOTE PATIENT STATES "HES GOING BLIND, EYES FEEL STRAINED" SLEPT ALL NIGHT BUT DOES NOT FEEL WELL RESTED. WILL INFORM DAY RN TO INFORM MD.
--- NOTE | 2021-02-19 07:25 | NUR ---
ms rn received on bed, awake,alert,oriented x4 not in any distress, respirations even and unlabored,no sob noted,lungs are clear,abdomen soft,positive bowel sounds, denies pain at this time,all needs attended.
[2021-02-19 08:00] VITALS: BP 100/62
[2021-02-19] MEDS: LORAZEPAM 1 MG TABLET PO SCH ×2 (09:02→14:00)
--- NOTE | 2021-02-19 12:00 | NUR ---
ms rn patient always inside room, does note go out. will monitor patient.
--- NOTE | 2021-02-19 14:00 | NUR ---
ms rn on bed, very dizzy, sleeping most of the time today, held ativen at this time,
[2021-02-19 16:00] VITALS: BP 103/56
--- NOTE | 2021-02-19 16:49 | NUR ---
ms rn on bed, no distress noted.
--- NOTE | 2021-02-19 17:47 | NUR ---
ms rn on bed, no distress noted, will endorse to night clerk auditor for lydia.
--- NOTE | 2021-02-19 19:40 | NUR ---
MS RN NOTES MD VISIT SEEN BY DR ZAMORA,PSYCHIATRIST.WITH NEW ORDERS NOTED.
--- NOTE | 2021-02-19 19:45 | NUR ---
MS RN NOTES /CLINICAL TRIAL RECEIVED SITTING ON BED,A/O X4,ABLE TO ANSWER QUESTION CORRECTLY,BREATHING EASY,NO SOB.NO SALINE LOCK PER PSYCHIATRY PROTOCOL.AMBULATES WITH STEADY GAIT.WILL CONTINUE TO MONITOR BEHAVIOR,CALL LIGHT IN REACH,NEEDS ANTICIPATED.
[2021-02-19 20:00] VITALS: BP 100/63
[2021-02-19 20:02] VITALS: BP 100/63
[2021-02-19] MEDS: [UNRECOGNIZED DRUG - OTHER] PO SCH (20:58)
[2021-02-19] MEDS: [UNRECOGNIZED DRUG - OTHER] PO SCH (20:58)
[2021-02-19] MEDS: [UNRECOGNIZED DRUG - OTHER] PO SCH (20:58)
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
--- NOTE | 2021-02-19 21:15 | NUR ---
MS RN NOTES PATIENT SHOWERED THIS TIME, BEDDINGS WAS CHANGED.
[2021-02-19] MEDS: ZOLPIDEM TARTRATE 10 MG TABLET PO PRN (22:51)
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
--- NOTE | 2021-02-19 22:51 | NUR ---
MS RN NOTES C/O INSOMNIA,AMBIEN 10MG PO GIVEN PER PATIENT REQUEST
--- NOTE | 2021-02-20 06:46 | NUR ---
MS RN NOTES/CLINICAL TRIAL DISPLAY NO S/S OF AKITHISIA,SLEEP WELL WITH SLEEPING PILL PLUS SHOWERED KAST NIGHT.WILL ENDORSE TO DAY NURSE FOR BEHAVIORA MONITORING.
[2021-02-20 07:53] VITALS: BP 121/63
--- NOTE | 2021-02-20 07:57 | NUR ---
RN OPENING NOTE RECEIVED PATIENT IN BED, AO X 4, ABLE TO RESPONDS ALL STIMULI. NO SI/HI OBSERVED. SKIN IS WARM TO TOUCH, KEEP CLEAN/DRY INTACT IV SITE. RESPIRATORY EVEN AND UNLABORED IN ROOM AIR. KEPT ELEVATED HOB FOR ENSURE AIR AND ASPIRATION PRECAUTION, ALSO LOWEST BED POSITION FOR SAFETY. CALL LIGHT WITHIN REACH, WILL CONTINUE TO MONITOR.
[2021-02-20] MEDS: LORAZEPAM 1 MG TABLET PO SCH ×3 (09:26→17:16)
[2021-02-20 16:46] VITALS: BP 107/66
--- NOTE | 2021-02-20 19:51 | NUR ---
MS RN OPENING NOTE PATIENT A/OX4; ABLE TO MAKE NEEDS KNOWN. ON ROOM AIR; TOLERATING WELL WITH NO SOB. DENIES PAIN OR DISCOMFORT AT THIS TIME. NO IV ACCESS NOTED. EDUCATED PATIENT NOT TO EAT BEFORE OR AFTER INVESTIGATIONAL MED. SAFETY MEASURES IN PLACE: BED IN LOWEST LOCKED POSITION, SIDE RAILS UP X2 CALL LIGHT WITHIN EASY REACH. WILL CONTINUE PLAN OF CARE
[2021-02-20 20:00] VITALS: BP 122/73
[2021-02-20] MEDS: [UNRECOGNIZED DRUG - OTHER] PO SCH (21:11)
[2021-02-20] MEDS: [UNRECOGNIZED DRUG - OTHER] PO SCH (21:11)
[2021-02-20] MEDS: [UNRECOGNIZED DRUG - OTHER] PO SCH (21:11)
[2021-02-20] MEDS: ZOLPIDEM TARTRATE 10 MG TABLET PO PRN ×2 (21:22→21:28)
--- NOTE | 2021-02-20 21:23 | NUR ---
MS RN NOTE PATIENT STABLE AND LEFT UNIT. CHARGE NURSE AWARE.
--- NOTE | 2021-02-20 21:28 | NUR ---
MS RN NOTE PATIENT RETURNED TO ROOM. ADMINISTERED AMBIEN ORDERED.
--- NOTE | 2021-02-20 22:10 | NUR ---
MS RN NOTE PATIENT C/O ITCHINESS AND REDNESS NOTED TO ARMS, CHEST, AND LEGS. PATIENT REQUESTING FOR MEDICATION FOR ITCHINESS PAGED DR. ZAMORA VIA URGENT. AWAITING FOR CALL BACK. OFFERED PATIENT CREAM.
--- NOTE | 2021-02-21 06:05 | NUR ---
MS RN CLOSING NOTE PATIENT A/OX4; ABLE TO MAKE NEEDS KNOWN. ON ROOM AIR; TOLERATING WELL WITH NO SOB. DENIES PAIN OR DISCOMFORT AT THIS TIME. NO IV ACCESS NOTED. EDUCATED PATIENT NOT TO EAT BEFORE OR AFTER INVESTIGATIONAL MED. SAFETY MEASURES IN PLACE: BED IN LOWEST LOCKED POSITION, SIDE RAILS UP X2 CALL LIGHT WITHIN EASY REACH. WILL ENDORSE PLAN OF CARE
--- NOTE | 2021-02-21 06:21 | NUR ---
MS RN NOTE PATIENT STABLE, SIGNED LOG BOOK AND LEFT UNIT.
--- NOTE | 2021-02-21 06:30 | NUR ---
MS RN NOTE PATIENT RETURNED TO UNIT AND SIGNED LOGGED BOOK. C/O ITCHINESS. PAGED DR. ZAMORA TO F/U.
--- NOTE | 2021-02-21 07:55 | NUR ---
MSRN OPENING NOTE PATIENT A/OX4; ABLE TO MAKE NEEDS KNOWN. ON ROOM AIR; TOLERATING WELL WITH NO SOB. DENIES PAIN OR DISCOMFORT AT THIS TIME. NO IV ACCESS NOTED. EDUCATED PATIENT NOT TO EAT BEFORE OR AFTER INVESTIGATIONAL MED. SAFETY MEASURES IN PLACE: BED IN LOWEST LOCKED POSITION, SIDE RAILS UP X2 CALL LIGHT WITHIN EASY REACH AND ANSWERED PEROMPTLY
[2021-02-21 08:00] VITALS: BP 92/54
[2021-02-21] MEDS: LORAZEPAM 1 MG TABLET PO SCH ×3 (08:27→18:23)
[2021-02-21 16:02] VITALS: BP 94/64
--- NOTE | 2021-02-21 19:30 | NUR ---
MS RN OPENING NOTES: RECEIVE PATIENT SLEEP IN BED COMFORTABLY, BED IN LOW POSITION, CALL LIGHST WITHIN REACH, NO COMPLAIN OF PAIN AND DISCOMFORT AT THIS TIME, PATIENT IS A/O X4 AMBULATORY AND ABLE TO MAKE NEEDS KNOWN, KEPT CLEANA AND DRY, ALL NEEDS MET, WILL CONTINUE TO MONITOR.
[2021-02-21 20:00] VITALS: BP 101/45
[2021-02-21] MEDS: [UNRECOGNIZED DRUG - OTHER] PO SCH (20:55)
[2021-02-21] MEDS: [UNRECOGNIZED DRUG - OTHER] PO SCH (20:55)
[2021-02-21] MEDS: [UNRECOGNIZED DRUG - OTHER] PO SCH (20:55)
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
--- NOTE | 2021-02-22 07:29 | NUR ---
RN CLOSING NOTES: PATIENT WAS PLACE IN BED COMFORTABLY BED IN LOW POSITION, CALL LIGHTS WITHIN REACH NO COMPLAIN OF PAIN AND DISCOMFORT PATIENT WAS ABLE TO MAKE NEEDS KNOW, CALLED DR EUGENE CHANDRA PATIENT COMPLAIN OF RASHES LEFT MESSAGE AWAITING FOR REPLY, PATIENT KEPT CLEAN AND DRY, ENDORSE TOMORNING SHIFT.
--- NOTE | 2021-02-22 07:36 | NUR ---
RN OPENING NOTES: PATIENT WAS PLACE IN BED COMFORTABLY BED IN LOW POSITION, CALL LIGHTS WITHIN REACH NO COMPLAIN OF PAIN AND DISCOMFORT PATIENT WAS ABLE TO MAKE NEEDS KNOW, CALLED DR EUGENE CHANDRA PATIENT COMPLAIN OF RASHES LEFT MESSAGE AWAITING FOR REPLY, PATIENT KEPT CLEAN AND DRY, ENDORSE TOMORNING SHIFT.
[2021-02-22 08:00] VITALS: BP 104/58
[2021-02-22] MEDS: LORAZEPAM 1 MG TABLET PO SCH ×3 (08:50→17:07)
[2021-02-22] MEDS: diphenhydrAMINE HCL 25 MG CAPSULE PO PRN (12:06)
[2021-02-22 16:00] VITALS: BP 106/54
--- NOTE | 2021-02-22 17:07 | NUR ---
RN CLOSING NOTES: PATIENT WAS PLACE IN BED COMFORTABLY BED IN LOW POSITION, CALL LIGHTS WITHIN REACH NO COMPLAIN OF PAIN AND DISCOMFORT PATIENT WAS ABLE TO MAKE NEEDS KNOW, CPATIENT KEPT CLEAN AND DRY
--- NOTE | 2021-02-22 19:35 | NUR ---
MS RN OPENING NOTES (CT): RECEIVED PATIENT IN ROOM AWAKE,A/OX 4 VERBALLY RESPONSIVE AND ABLE TO MAKE KNEDDS KNOWN, PATIENT IS AMBULATORY,, NO COMPLAIN OF PAIN AND DISCOMFORT AT THIS TIME, REMIND RESIDENT TO USE CALL LIGHTS WHEN NEED ASISTANCE, ALL NEEDS ARE MET, WILL CONTINUE TO MONITOR.
[2021-02-22 19:45] VITALS: BP 114/66
[2021-02-22 19:51] VITALS: BP 114/66
[2021-02-22] MEDS: [UNRECOGNIZED DRUG - OTHER] PO SCH (20:59)
[2021-02-22] MEDS: [UNRECOGNIZED DRUG - OTHER] PO SCH (20:59)
[2021-02-22] MEDS: [UNRECOGNIZED DRUG - OTHER] PO SCH (20:59)
--- NOTE | 2021-02-23 06:17 | NUR ---
RN CLOSING NOTES: RECEIVED RESIDENT SLEEP IN BED COMFORTABLY, AROUSABLE TO STIMULI, A/OX4 AND ABLE TO MAKE NEEDS KNOWN, NO COMPLAIN OF PAIN ANS DISCOMFORT AT THIS TIME, BED IN LOW POSITION, CALL LIGHTS WITHIN REACH, ENDORSE TO INCOMING SHIFT.
[2021-02-23 08:00] VITALS: BP 106/60
--- NOTE | 2021-02-23 08:00 | NUR ---
RN OPENING NOTE PT CURRENTLY IN BED RESTING. A/O X3 AND [place] SPEAKING. NO COMPLAINT OF PAIN OR NAUSEA. CURRENTLY ON RA WITH NO SOB OR RESPIRATORY DISTRESS PRESENT. SELF AMBULATORY WITH BATHROOM PRIVILEGES. SKIN IS INTACT. NO EDEMA PRESENT. NO IV PRESENT DUE TO CLINICAL TRIAL STATUS. SAFETY MEASURES IN PLACE. SIDE RAILS RAISED. BED LOWERED. CALL LIGHT WITHIN REACH. WILL CONTINUE TO MONITOR.
[2021-02-23] MEDS: LORAZEPAM 1 MG TABLET PO SCH ×3 (08:56→16:56)
[2021-02-23] MEDS: diphenhydrAMINE HCL 25 MG CAPSULE PO PRN ×3 (09:03→16:56)
--- NOTE | 2021-02-23 18:22 | NUR ---
RN CLOSING NOTE PT CURRENTLY IN BED RESTING. A/O X3 AND GREENLAND[place] SPEAKING. NO COMPLAINT OF PAIN OR NAUSEA. CURRENTLY ON RA WITH NO SOB OR RESPIRATORY DISTRESS PRESENT. SELF AMBULATORY WITH BATHROOM PRIVILEGES. SKIN IS INTACT. NO EDEMA PRESENT. NO IV PRESENT DUE TO CLINICAL TRIAL STATUS. SAFETY MEASURES IN PLACE. SIDE RAILS RAISED. BED LOWERED. CALL LIGHT WITHIN REACH. REPORT TO BE GIVEN TO NIGHT NURSE FOR JOEL.
--- NOTE | 2021-02-23 19:41 | NUR ---
MS RN OPENING NOTE RECEIVED PT AWAKE IN BED. A/O X4. PT STABLE ON ROOM AIR. NO SOB NOTED. NO S/S OF RESPIRATORY DISTRESS. PT IS AMBULATORY WITH BRP PT HAS NO C/O PAIN AT THIS TIME. NO IV ACCESS NOTED DUE TO CLINICAL TRIAL STATUS. SAFETY MEASURES MAINTAINED. BED IN LOWEST LOCKED POSITION, HOB ELEVATED, SIDE RAILS UP X2. CALL LIGHT AND TABLE WITHIN REACH. WILL CONTINUE WITH PLAN OF CARE.
[2021-02-23 20:00] VITALS: BP 109/60
[2021-02-23] MEDS: [UNRECOGNIZED DRUG - OTHER] PO SCH (21:01)
[2021-02-23] MEDS: [UNRECOGNIZED DRUG - OTHER] PO SCH (21:01)
[2021-02-23] MEDS: [UNRECOGNIZED DRUG - OTHER] PO SCH (21:01)
--- NOTE | 2021-02-24 06:14 | NUR ---
MS RN CLOSING NOTE PT IS IN BED WITH EYES CLOSED, EASY TO AROUSE. A/O X4. PT SLEPT FOR 8 HOURS. PT STABLE ON ROOM AIR. NO SOB NOTED. NO S/S OF RESPIRATORY DISTRESS. PT IS AMBULATORY WITH BRP PT HAS NO C/O PAIN AT THIS TIME. NO IV ACCESS NOTED DUE TO CLINICAL TRIAL STATUS. SAFETY MEASURES MAINTAINED. BED IN LOWEST LOCKED POSITION, HOB ELEVATED, SIDE RAILS UP X2. CALL LIGHT AND TABLE WITHIN REACH. WILL ENDORSE TO ONCOMING NURSE FOR JOEL.
--- NOTE | 2021-02-24 07:30 | NUR ---
RN OPENING NOTE RECEIVED PT AWAKE SITTING ON THE EDGE OF BED. A/O X4. PT IS STABLE ON ROOM AIR. NO SOB NOTED. NO S/S OF RESPIRATORY DISTRESS. PT IS AMBULATORY AND INDEPENDENT PT HAS NO C/O PAIN AT THIS TIME. NO IV ACCESS NOTED DUE TO CLINICAL TRIAL STATUS. SAFETY MEASURES MAINTAINED. BED IN LOWEST POSITION, HOB ELEVATED, SIDE RAILS UP X2. CALL LIGHT AND TABLE WITHIN REACH. WILL CONTINUE TO MONITOR PT.
[2021-02-24 08:00] VITALS: BP 120/75
[2021-02-24] MEDS: LORAZEPAM 1 MG TABLET PO SCH ×3 (09:34→17:18)
--- NOTE | 2021-02-24 18:35 | NUR ---
RN CLOSING NOTES PT AWAKE IN BED AT THIS TIME. PT REMAINED STABLE THROUGHOUT SHIFT. ALL NEEDS, MEDICATIONS, AND CARE ADMINISTERED ANTICIPATED PER ORDER. PT DENIES SI/HI, VISUAL AND AUDITORY HALLUCINATION. NO COMPLAINS OF TREMORS, EPS, OR AKATHISIA. SAFETY PRECAUTIONS IN PLACE AND MAINTAINED AT ALL TIMES. BED IN LOWEST LOCKED POSITION, HOB ELEVATED, SIDE RAILS UP X 2. CALL LIGHT AND TABLE WITHIN REACH. WILL ENDORSE TO FRONT OFFICE REPRESENTATIVE NURSE FOR JOEL
[2021-02-24 20:21] VITALS: BP 90/46
[2021-02-24] MEDS: [UNRECOGNIZED DRUG - OTHER] PO SCH (21:11)
[2021-02-24] MEDS: [UNRECOGNIZED DRUG - OTHER] PO SCH (21:11)
[2021-02-24] MEDS: [UNRECOGNIZED DRUG - OTHER] PO SCH (21:11)
--- NOTE | 2021-02-25 06:02 | NUR ---
MS RN CLOSING NOTE PT IS AWAKE IN BED AT THIS TIME. A/O X4. PT STABLE ON ROOM AIR. NO SOB NOTED. NO S/S OF RESPIRATORY DISTRESS. PT IS AMBULATORY WITH BRP. PT HAS NO C/O PAIN AT THIS TIME. NO IV ACCESS NOTED DUE TO CLINICAL TRIAL STATUS. PT DENIES VISUAL AND AUDITORY HALLUCINATIONS. NO TREMORS, EPS, OR AKATHISIA NOTED. PT SLEPT FOR 8 HOURS. SAFETY MEASURES MAINTAINED. BED IN LOWEST LOCKED POSITION, HOB ELEVATED, SIDE RAILS UP X2. CALL LIGHT AND TABLE WITHIN REACH. WILL ENDORSE TO ONCOMING NURSE FOR JOEL.
--- NOTE | 2021-02-25 07:20 | NUR ---
MS RN OPENING NOTE RECEIVED PATIENT IN BED. A/O X 4. AMBULATORY WITH STEADY GAIT. ON ROOM AIR, TOLERATING WELL, NO SOB NOTED. IN NO APPARENT DISTRESS. NO REPORTS OF PAIN OR DISCOMFORT AT THIS TIME. SAFETY MEASURES MAINTAINED. BED IN LOWEST POSITION, BRAKES LOCKED. SIDE RAILS UP X2. CALL LIGHT WITHIN REACH. WILL CONTINUE PLAN OF CARE.
[2021-02-25 08:00] VITALS: BP 111/74
[2021-02-25] MEDS: LORAZEPAM 1 MG TABLET PO SCH ×2 (12:18→16:17)
[2021-02-25] MEDS ORDERED: LORAZEPAM 1 MG TABLET PO SCH (14:00)
[2021-02-25 16:00] VITALS: BP 119/71
--- NOTE | 2021-02-25 18:09 | NUR ---
MS RN CLOSING NOTE PATIENT RESTING IN BED. A/O X 4. AMBULATORY WITH STEADY GAIT. ON ROOM AIR, TOLERATING WELL, NO SOB NOTED. IN NO APPARENT DISTRESS. NO REPORTS OF PAIN OR DISCOMFORT AT THIS TIME. NO REPORTS OF TREMORS AND AKATHISIA. ALL NEEDS HAVE BEEN MET AND ATTENDED. ALL DUE MEDS GIVEN ORDERED. SAFETY MEASURES MAINTAINED. BED IN LOWEST POSITION, BRAKES LOCKED. SIDE RAILS UP X2. CALL LIGHT WITHIN REACH. WILL ENDORSE CONTINUITY OF CARE TO ONCOMING SHIFT.
--- NOTE | 2021-02-25 19:30 | NUR ---
RN OPENING NOTES Patient was seen awake standing in his room. Patient is A/O x4. Patient is on room air with no respiratory distress noted. Patient has no signs and symptoms of acute distress/pain noted. Safety precautions in place: Bed locked, side rails up x 2, and call light within easy reach of the patient. Will continue to monitor the patient.
[2021-02-25 20:00] VITALS: BP 104/59
[2021-02-25] MEDS: [UNRECOGNIZED DRUG - OTHER] PO SCH (21:00)
[2021-02-25] MEDS: [UNRECOGNIZED DRUG - OTHER] PO SCH (21:00)
[2021-02-25] MEDS: [UNRECOGNIZED DRUG - OTHER] PO SCH (21:00)
[2021-02-25] MEDS: diphenhydrAMINE HCL 25 MG CAPSULE PO PRN (21:47)
--- NOTE | 2021-02-26 07:00 | NUR ---
RN CLOSING NOTES Patient was last seen awake resting in bed. Patient is A/O x4. Patient is on room air with no respiratory distress noted. Patient has no signs and symptoms of acute distress. Safety precautions in place: Bed locked, side rails up x 2, and call light within easy reach of the patient. Will endorse care to day shift nurse.
[2021-02-26 08:00] VITALS: BP 106/66
[2021-02-26] MEDS: LORAZEPAM 1 MG TABLET PO SCH ×3 (09:07→17:45)
[2021-02-26 16:00] VITALS: BP 93/53
[2021-02-26 17:57] VITALS: BP 114/59
--- NOTE | 2021-02-26 19:02 | NUR ---
MS/RN CLOSING NOTE PATIENT AWAKE IN BED. A/O X4. PT STABLE ON ROOM AIR. NO SOB NOTED. NO S/S OF RESPIRATORY DISTRESS. PT IS AMBULATORY WITH BRP PT HAS NO C/O PAIN AT THIS TIME. NO IV ACCESS DUE TO CLINICAL TRIAL STATUS. ALL NEEDS ARE MET. NO TREMORS OR S/S OF AKATHISIA NOTED AT THIS TIME. SAFETY PRECAUTIONS MAINTAINED THROUGHOUT THE SHIFT. BED IN LOWEST LOCKED POSITION, HOB ELEVATED, SIDE RAILS UP X2. CALL LIGHT AND TABLE WITHIN REACH. WILL ENDORSE TO THE NEXT SHIFT FOR CONTINUITY OF CARE.
[2021-02-26 20:00] VITALS: BP 118/70
--- NOTE | 2021-02-26 20:20 | NUR ---
RN OPENING NOTES Patient was last seen awake resting in bed. Patient is A/O x4. Patient is on room air with no respiratory distress noted. No IV access noted due to clinical trial status. Patient has no signs and symptoms of acute distress. Safety precautions in place: Bed locked, side rails up x 2, and call light within easy reach of the patient. Will continue to monitor the patient.
[2021-02-26] MEDS: [UNRECOGNIZED DRUG - OTHER] PO SCH (21:00)
[2021-02-26] MEDS: [UNRECOGNIZED DRUG - OTHER] PO SCH (21:00)
[2021-02-26] MEDS: [UNRECOGNIZED DRUG - OTHER] PO SCH (21:00)
--- NOTE | 2021-02-26 22:00 | NUR ---
RN NOTES Patient took all his scheduled medications due at 2100 tonight.
[2021-02-27] MEDS: ACETAMINOPHEN ES 500 MG TABLET PO PRN (02:06)
[2021-02-27] MEDS: ZOLPIDEM TARTRATE 10 MG TABLET PO PRN (02:24)
--- NOTE | 2021-02-27 03:28 | NUR ---
RN Notes Patient c/o 7/10 pain. Patient was given Ibuprofen 600mg by mouth. Will continue to monitor the patient.
--- NOTE | 2021-02-27 06:40 | NUR ---
RN CLOSING NOTES Patient was last seen awake resting in bed. Patient is A/O x4. Patient is on room air with no respiratory distress noted. No IV access noted due to clinical trial status. Patient has no signs and symptoms of acute distress noted. Safety precautions in place: Bed locked, side rails up x 2, and call light within easy reach of the patient. Will endorse care to the day shift nurse.
--- NOTE | 2021-02-27 07:52 | NUR ---
MS RN OPENING NOTE PATIENT IS IN BED RESTING, PATIENT IS IN NO ACUTE DISTRESS. PATIENT IS ON ROOM AIR TOLERATING WELL, NO SOB NOTED. SAFETY PRECAUTIONS ARE ON, BED IS LOCKED, IN THE LOWEST POSITION WITH SIDE RAILS UP. WILL CONTINUE TO MONITOR CLOSELY.
[2021-02-27 08:00] VITALS: BP 140/89
[2021-02-27 16:00] VITALS: BP 143/82
[2021-02-27] MEDS: LORAZEPAM 1 MG TABLET FOR AGITATN/ANXIETY/HOSTILITY PO PRN (18:32)
--- NOTE | 2021-02-27 18:43 | NUR ---
MS RN CLOSING NOTE PATIENT IS IN BED RESTING, PATIENT IS IN NO ACUTE DISTRESS. PATIENT IS ON ROOM AIR TOLERATING WELL, NO SOB NOTED. SAFETY PRECAUTIONS ARE ON, BED IS LOCKED, IN THE LOWEST POSITION WITH SIDE RAILS UP. ENDORSE PATIENT TO IMPROVEMENT COORDINATOR NURSE FOR JOEL.
--- NOTE | 2021-02-27 19:46 | NUR ---
MS RN OPENING NOTES PATIENT A/OX4 ABLE TO MAKE NEEDS KNOWN. TOLERATING ROOM AIR WELL WITH NO SOB. NO IV ACCESS. DENIES PAIN OR DISCOMFORT AT THIS TIME. SAFETY MEASURES IN PLACE: BED IN LOWEST LOCKED POSITION, SIDE RAILS UPX2, CALL LIGHT WITHIN EASY REACH. PATIENT IN STABLE CONDITION, WILL CONTINUE PLAN OF CARE.
[2021-02-27 20:35] VITALS: BP 118/77
[2021-02-27 21:00] VITALS: BP 131/93
[2021-02-27] MEDS: [UNRECOGNIZED DRUG - OTHER] PO SCH (21:00)
[2021-02-27] MEDS: [UNRECOGNIZED DRUG - OTHER] PO SCH (21:00)
[2021-02-27] MEDS: [UNRECOGNIZED DRUG - OTHER] PO SCH (21:00)
--- NOTE | 2021-02-28 06:19 | NUR ---
MS RN CLOSING NOTES PATIENT A/OX4 ABLE TO MAKE NEEDS KNOWN. TOLERATING ROOM AIR WELL WITH NO SOB. NO IV ACCESS. DENIES PAIN OR DISCOMFORT AT THIS TIME. SAFETY MEASURES IN PLACE: BED IN LOWEST LOCKED POSITION, SIDE RAILS UPX2, CALL LIGHT WITHIN EASY REACH. PATIENT IN STABLE CONDITION, WILL CONTINUE PLAN OF CARE.
[2021-02-28 08:00] VITALS: BP 124/75
[2021-02-28] MEDS: LORAZEPAM 1 MG TABLET FOR AGITATN/ANXIETY/HOSTILITY PO PRN ×2 (13:14→17:34)
[2021-02-28 16:48] VITALS: BP 127/85
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
--- NOTE | 2021-02-28 19:00 | NUR ---
MS RN CLOSING NOTE PATIENT IS IN BED RESTING, PATIENT IS IN NO APPARENT RESPIRATORY DISTRESS. PATIENT IS ON ROOM AIR TOLERATING WELL. NO COMPLAINED OF PAIN AT THIS TIME. SAFETY PRECAUTIONS WAS IN PLACED, BED IS LOCKED, IN THE LOWEST POSITION WITH SIDE RAILS UP. PATIENT WITH 1:1 SITTER. WILL ENDORSE TO RUBBER WASHER NURSE FOR JOEL.
--- NOTE | 2021-02-28 19:42 | NUR ---
MS RN OPENING NOTE RECEIVED PT AWAKE IN BED. A/O X4. PT STABLE ON ROOM AIR. NO SOB NOTED. NO S/S OF RESPIRATORY DISTRESS. PT IS AMBULATORY WITH [facility] PT HAS NO C/O PAIN AT THIS TIME. NO IV ACCESS NOTED DUE TO CLINICAL TRIAL STATUS. PT WITH 1:1 SITTER. SAFETY MEASURES MAINTAINED. BED IN LOWEST LOCKED POSITION, HOB ELEVATED, SIDE RAILS UP X2. CALL LIGHT AND TABLE WITHIN REACH. WILL CONTINUE WITH PLAN OF CARE.
[2021-02-28 20:00] VITALS: BP 130/86
[2021-02-28] MEDS: [UNRECOGNIZED DRUG - OTHER] PO SCH (21:02)
[2021-02-28] MEDS: [UNRECOGNIZED DRUG - OTHER] PO SCH (21:02)
[2021-02-28] MEDS: [UNRECOGNIZED DRUG - OTHER] PO SCH (21:02)
[2021-03-01] MEDS: ZOLPIDEM TARTRATE 10 MG TABLET PO PRN (01:41)
--- NOTE | 2021-03-01 01:41 | NUR ---
ADMINISTERED AMBIEN 10 MG PO ORDERED FOR RN'S ASSESSMENT OF PT. WILL REASSESS FOR SLEEP WITHIN 1 HOUR.
[2021-03-01 04:00] VITALS: BP 133/84
--- NOTE | 2021-03-01 06:51 | NUR ---
MS RN CLOSING NOTE PT IS IN BED WITH EYES CLOSED, EASY TO AROUSE. A/O X4. PT SLEPT FOR 7.5 HOURS. PT STABLE ON ROOM AIR. NO SOB NOTED. NO S/S OF RESPIRATORY DISTRESS. PT IS AMBULATORY WITH [facility] PT HAS NO C/O PAIN AT THIS TIME. NO IV ACCESS NOTED DUE TO CLINICAL TRIAL STATUS. PT WITH 1:1 SITTER. SAFETY MEASURES MAINTAINED. BED IN LOWEST LOCKED POSITION, HOB ELEVATED, SIDE RAILS UP X2. CALL LIGHT AND TABLE WITHIN REACH. WILL ENDORSE TO ONCOMING NURSE FOR JOEL.
--- NOTE | 2021-03-01 07:32 | NUR ---
RN NOTES PATIENT RECEIVED IN BED, AWAKE, ALERT AND ORIENTED X 4. ON ROOM AIR WITH NO SIGNS OF RESPIRATORY DISTRESS, WITH EVEN NON-LABORED BREATHING. NO IV ACCESS DUE TO CLINICAL TRIAL. PATIENT HAS SITTER AT BEDSIDE. PATIENT PRESENTS WITH NO PAIN OR DISCOMFORT AT THIS TIME. SAFETY PRECAUTIONS IMPLEMENTED WITH BED LOCKED, BILATERAL SIDE RAILS UP, BED IN LOWEST POSITIONS, AND WILL CONTINUE TO MONITOR.
[2021-03-01 08:00] VITALS: BP 117/77
[2021-03-01] MEDS: MAG HYDROX/AL HYDROX/SIMETH 30 ML UDC PO PRN (08:58)
[2021-03-01] MEDS: LORAZEPAM 1 MG TABLET FOR AGITATN/ANXIETY/HOSTILITY PO PRN (09:17)
--- NOTE | 2021-03-01 10:09 | NUR ---
dr. Romero called to spick with the pt. Per to keep sitter tonight for close monitor and he will come to see pt in am. According to md pt is negative for suicidal ideation or hurting someone. New order to give Ativen 1 mg tid for 2 days.
--- NOTE | 2021-03-01 10:17 | NUR ---
sitter at bedside, pt is resting in bed comfortable.
[2021-03-01] MEDS: LORAZEPAM 1 MG TABLET PO SCH ×2 (13:15→16:50)
[2021-03-01 16:00] VITALS: BP 108/69
--- NOTE | 2021-03-01 19:06 | NUR ---
RN NOTES PATIENT IN BED, AWAKE, ALERT AND ORIENTED X 4. ON ROOM AIR WITH NO SIGNS OF RESPIRATORY DISTRESS, WITH EVEN NON-LABORED BREATHING. NO IV ACCESS DUE TO CLINICAL TRIAL. MET ALL OF PATIENT'S NEEDS. PATIENT HAS SITTER AT BEDSIDE. PATIENT PRESENTS WITH NO PAIN OR DISCOMFORT AT THIS TIME. SAFETY PRECAUTIONS IMPLEMENTED WITH BED LOCKED, BILATERAL SIDE RAILS UP, BED IN LOWEST POSITIONS, WILL ENDORSE PLAN OF CARE TO UPCOMING RN.
--- NOTE | 2021-03-01 19:30 | NUR ---
RN OPENING NOTES Patient was last seen awake in his room. Patient is A/O x4. Patient is on room air with no respiratory distress noted. No IV access noted due to clinical trial status. Patient has no signs and symptoms of acute distress. Safety precautions in place: Bed locked, side rails up x 2, and call light within easy reach of the patient. Will continue to monitor the patient.
[2021-03-01 20:00] VITALS: BP 119/70
[2021-03-01] MEDS: [UNRECOGNIZED DRUG - OTHER] PO SCH (21:00)
[2021-03-01] MEDS: [UNRECOGNIZED DRUG - OTHER] PO SCH (21:00)
[2021-03-01] MEDS: [UNRECOGNIZED DRUG - OTHER] PO SCH (21:00)
--- NOTE | 2021-03-02 06:34 | NUR ---
RN CLOSING NOTES Patient was last seen awake in his room. Patient is A/O x4. Patient is on room air with no respiratory distress noted. No IV access noted due to clinical trial status. Patient has no signs and symptoms of acute distress. Safety precautions in place: Bed locked, side rails up x 2, and call light within easy reach of the patient. Will endorse care to the day shift nurse.
[2021-03-02] MEDS: LORAZEPAM 1 MG TABLET PO SCH ×3 (08:56→16:24)
--- NOTE | 2021-03-02 08:57 | NUR ---
RN NOTES PATIENT SEEN IN ROOM RESTING, AWAKE AND VERBALLY RESPONSIVE, NOT IN ACUTE DISTRESS AT THIS TIME; SITTER AT BEDSIDE EARLIER. BREATHING EVEN AND UNLABORED, TOLERATING ROOM AIR. SCHEDULED ATIVAN PO GIVEN TODAY, TAKEN BY PATIENT. WILL CONTINUE TO MONITOR.
[2021-03-02] MEDS: ACETAMINOPHEN ES 500 MG TABLET PO PRN (09:49)
--- NOTE | 2021-03-02 11:25 | NUR ---
RN NOTES SPOKE W/ PATIENT'S MOM, ABDULLAHI YA ([phone]), AND WAS INFORMED THAT PATIENT WAS COMPLAINING OF HEADACHE AND VISION PROBLEM; ASSESSED PATIENT EARLIER AND PATIENT REQUESTED TYLENOL FOR HEADACHE, ADMINISTERED INDICATED. PATIENT STILL ABLE TO USE HIS PERSONAL CELLPHONE AND WAS SPEAKING TO, ACCORDING TO PATIENT, EX-GIRLFRIEND. REASSURED PATIENT THAT HE WILL BE SEEN BY HIS DOCTOR TODAY FOR EVAL.
--- NOTE | 2021-03-02 13:07 | NUR ---
RN NOTES 1300 ATIVAN DOSE GIVEN AND TAKEN BY PATIENT. ASKED PATIENT HOW HE'S DOING AND HE SAID "I FEEL WEIRD". NO COMPLAINTS OF HEADACHE NOR VISION CHANGES AT THIS TIME. PATIENT SEEN STANDING BY THE BED IN HIS ROOM. WILL CONTINUE TO MONITOR.
[2021-03-02 16:00] VITALS: BP 111/68
--- NOTE | 2021-03-02 16:28 | NUR ---
RN NOTES LAST DOSE OF ATIVAN PO GIVEN TO PATIENT. PATIENT SEEN LYING IN BED USING HIS CELLPHONE, NOT IN ACUTE DISTRESS, NO COMPLAINTS AT THIS TIME.
--- NOTE | 2021-03-02 18:46 | NUR ---
RN NOTES PATIENT IN BED RESTING, AWAKE AND VERBALLY RESPONSIVE. SEEN BY DR. ZAMORA. NEW ORDERS NOTED. WILL ENDORSE TO NECKTIES PAINTER RN FOR JOEL.
[2021-03-02 20:00] VITALS: BP 117/67
--- NOTE | 2021-03-02 20:07 | NUR ---
MS RN OPENING PATIENT IN ROOM. A/OX4. REMINDED PATIENT OF HIS 2100 INVESTIGATIONAL DRUGS. REMINDED HIM THAT HE WILL BE NPO TONIGHT @2200. NO S/S OF DISTRESS. NO C/O PAIN. NOT EXHIBITING ANY S/S AKATHISIA, TREMORS, NOR EPS. WILL CONTINUE TO MONITOR.
[2021-03-02] MEDS: [UNRECOGNIZED DRUG - OTHER] PO SCH (21:00)
[2021-03-02] MEDS: [UNRECOGNIZED DRUG - OTHER] PO SCH (21:00)
[2021-03-02] MEDS: [UNRECOGNIZED DRUG - OTHER] PO SCH (21:00)
--- NOTE | 2021-03-02 22:28 | NUR ---
MS RN NOTES PATIENT EXPERIENCING PSYCHOLOGICAL INSTABILITY. PER PATIENT "THEY ARE AFTER HIM". NOTIFIED DR. ZAMORA. DOCTOR ORDERED 3MG ATIVAN PO FOR NOW. WAITING FOR MEDICATION TO BE VERIFIED. WILL CONTINUE TO MONITOR.
[2021-03-02] MEDS ORDERED: LORAZEPAM 1 MG TABLET PO PRN ×2 (22:30→23:00)
[2021-03-02] MEDS ORDERED: LORAZEPAM 1 MG TABLET PO ONE (23:00)
--- NOTE | 2021-03-02 23:00 | NUR ---
MS RN NOTES PATIENT TOOK ONLY 1 GM OF ATIVAN, AND SPIT OUT THE 2 PILLS. PER PATIENT HE DOES NOT WANT TO BE DRUGGED. MADE CHARGE NURSE KNOW. MIRZA FRANKLIN SAID TO JUST WASTE MEDICATION SINCE WE CANNOT RETURN NOR WASTE IT ON THE OMNICELL. WILL CONTINUE TO MONITOR PATIENT. Addendum: 03/03/21 at 0324 by ANIKET KITCHEN RN MS RN NOTES PATIENT TOOK ONLY 1 MG* (1 PILL) OF ATIVAN, AND SPIT OUT THE 2 PILLS. PER PATIENT HE DOES NOT WANT TO BE DRUGGED. MADE CHARGE NURSE KNOW. MIRZA FRANKLIN SAID TO WASTE MEDICATION SINCE WE CANNOT RETURN NOR WASTE IT ON THE OMNICELL. WILL CONTINUE TO MONITOR PATIENT.
--- NOTE | 2021-03-03 03:22 | NUR ---
MS RN NOTES PATIENT REPORTS FEELING OKAY. NOT EXPERIENCING ANY AUDITORY HALLUCINATION AT THE MOMENT. IN THE BED WITH HIS PHONE WILL CONTINUE TO MONITOR.
--- NOTE | 2021-03-03 07:05 | NUR ---
MS RN CLOSING PATIENT IN BED. A/OX4. NO S/S OF DISTRESS. NO C/O PAIN TJ. PATIENT NOT EXPERIENCING AUDITORY HALLUCINATION TJ. WILL ENDORSE CARE TO MORNING RN.
--- NOTE | 2021-03-03 07:30 | NUR ---
RN MS NOTES PT IN BED, AWAKE, ALERT AND ORIENTED, NO BEHAVIOR PROBLEM NOTED, STATES THAT HE IS OK, INFORMED PT THAT HE IS NPO FOR NOW, PT INFORMED, VERBALIZED UNDERSTANDING, WILL CONTINUE TO MONITOR.
[2021-03-03 08:00] VITALS: BP 136/87
[2021-03-03] MEDS ORDERED: ZOLPIDEM TARTRATE 10 MG TABLET PO PRN (12:00)
[2021-03-03] MEDS ORDERED: LORAZEPAM 1 MG TABLET FOR AGITATION/ANXIETY/HOSTILITY PO PRN (12:00)
--- NOTE | 2021-03-03 14:12 | NUR ---
RN NOTES PT BACK FROM MD'S OFFICE, RECEIVED ORDERS OF NO FOOD 2.5 HOURS BEFORE AND AFTER MEDS, MEDS SCHEDULED AT 1700, PT INFORMED, VERBALIZED UNDERSTANDING.
[2021-03-03 16:00] VITALS: BP 150/91
[2021-03-03] MEDS ORDERED: [UNRECOGNIZED DRUG - OTHER] PO ONE (17:00)
[2021-03-03] MEDS ORDERED: [UNRECOGNIZED DRUG - OTHER] PO ONE (17:00)
[2021-03-03] MEDS ORDERED: [UNRECOGNIZED DRUG - OTHER] PO ONE (17:00)
--- NOTE | 2021-03-03 17:00 | NUR ---
RN MS NOTES PT TOOK SCHEDULED MEDICATIONS ON TIME, PT INFORMED THAT HE CAN EAT DINNER AT 1945, VERBALIZED UNDERSTANDING.
--- NOTE | 2021-03-03 17:30 | NUR ---
RN MS NOTES PT WENT DOWNSTAIRS TO SMOKE, PT AWARE THAT HE IS NPO UNTIL 1945.
[2021-03-03 20:00] VITALS: BP 126/96
--- NOTE | 2021-03-04 06:17 | NUR ---
MS RN CLOSING NOTE PT IS AWAKE IN BED. A/O X4. PT STABLE ON ROOM AIR. NO SOB NOTED. NO S/S OF RESPIRATORY DISTRESS. PT IS AMBULATORY WITH [facility]. PT HAS NO C/O PAIN AT THIS TIME. NO IV ACCESS NOTED DUE TO CLINICAL TRIAL STATUS. PT NOT EXPERIENCING AUDITORY HALLUCINATIONS AT THIS TIME. SAFETY MEASURES MAINTAINED. BED IN LOWEST LOCKED POSITION, HOB ELEVATED, SIDE RAILS UP X2. CALL LIGHT AND TABLE WITHIN REACH. WILL ENDORSE TO ONCOMING NURSE FOR JOEL.
--- NOTE | 2021-03-04 07:30 | NUR ---
MS RN OPENING NOTES PATIENT A/O X 4. TOLERATING ROOM AIR WELL WITH NO SOB. NO IV ACCESS. DENIES PAIN OR DISCOMFORT AT THIS TIME. ABLE TO MAKE NEEDS KNOWN. SAFETY MEASURES IN PLACE WITH BED IN LOWEST LOCKED POSITION, SIDE RAILS UPX2, CALL LIGHT WITHIN EASY REACH. WILL CONTINUE TO MONITOR PATIENT THROUGHOUT SHIFT.
[2021-03-04 08:00] VITALS: BP 136/89
--- NOTE | 2021-03-04 09:25 | NUR ---
MS RN NOTES PATIENT STATED " I WANT TO SPEAK TO DR. ZAMORA. I HAVE SOME BELIEFS NO ONE ELSE WILL BELIEVE." SENT MESSAGE TO DR. ZAMORA AND LEFT MESSAGE WITH OFFICE, SPOKE WITH "KRISTY."
--- NOTE | 2021-03-04 09:40 | NUR ---
MS RN NOTES SPOKE WITH DR. ZAMORA WITH ORDER TO GIVE ATIVAN 2MG TID. ORDERS READ BACK AND CARRIED OUT.
[2021-03-04] MEDS ORDERED: LORAZEPAM 1 MG TABLET PO ONE (10:00)
--- NOTE | 2021-03-04 10:00 | NUR ---
MS RN NOTES UPON ENTERING ROOM OF PATIENT, PATIENT STATED HE SMOKED METH AND FENTANYL 2 HOURS AGO AND HAS BEEN USING THE PAST FOUR DAYS. PATIENT IN DISTRESS AND CRYING. I ASKED PATIENT IF HE HAS ANY DRUGS ON HIM AND HE STATED HE "FLUSHED EVERYTHING DOWN THE TOILET." HE HANDED OVER METH PIPE AND SAID "THIS IS ALL I HAVE. TAKE IT." ALL CONTRABAND INCLUDING DEPILATORY PAINTER, CIGARETTES, PIPE, SHAVER AND CLIPPERS REMOVED FROM ROOM AND PLACED AT NURSES STATION. ROBERT, CHARGE NURSE AND DR. KNIGHT MADE AWARE.
[2021-03-04] MEDS ORDERED: LORAZEPAM 1 MG TABLET PO SCH ×2 (13:00→14:00)
--- NOTE | 2021-03-04 13:32 | NUR ---
received call from to d/c discharge to gps, according to he spoke with gps director and administration and pt is not appropriate for gps unit due to his age. Per md pt can go out for 10 to 15 minutes with our staff.
--- NOTE | 2021-03-04 14:30 | NUR ---
pt went out to smoke with supervision, came back to his room.
--- NOTE | 2021-03-04 15:50 | NUR ---
pt resting in bed and checking his phone, stated that he is feeling better than this morning.
[2021-03-04 16:00] VITALS: BP 125/78
[2021-03-04] MEDS: LORAZEPAM 1 MG TABLET PO SCH (17:16)
--- NOTE | 2021-03-04 19:07 | NUR ---
MS RN CLOSING NOTES PATIENT A/O X 4. TOLERATING ROOM AIR WELL WITH NO SOB. NO IV ACCESS. DENIES PAIN OR DISCOMFORT AT THIS TIME. ABLE TO MAKE NEEDS KNOWN. MEDICATIONS GIVEN ORDERED. SAFETY MEASURES IN PLACE WITH BED IN LOWEST LOCKED POSITION, SIDE RAILS UPX2, CALL LIGHT WITHIN EASY REACH. WILL ENDORSE CONTINUITY OF CARE TO ONCOMING SHIFT.
--- NOTE | 2021-03-04 19:53 | NUR ---
MS RN OPENING NOTES PATIENT A/OX4 ABLE TO MAKE NEEDS KNOWN. TOLERATING ROOM AIR WELL WITH NO SOB. NO IV ACCESS. NOTED WITH EPISODE OF PARANOIA AND ANXIETY. SAFETY MEASURES IN PLACE: BED IN LOWEST LOCKED POSITION, SIDE RAILS UPX2, CALL LIGHT WITHIN EASY REACH. PATIENT IN STABLE CONDITION, WILL CONTINUE PLAN OF CARE.
[2021-03-04 20:00] VITALS: BP 138/77
--- NOTE | 2021-03-04 21:00 | NUR ---
MS RN NOTE PATIENT VERBALIZED HAVING AUDITORY HALLUCINATIONS AND ANXIETY.
[2021-03-04] MEDS: [UNRECOGNIZED DRUG - OTHER] PO SCH (21:02)
[2021-03-04] MEDS: [UNRECOGNIZED DRUG - OTHER] PO SCH (21:02)
[2021-03-04] MEDS: [UNRECOGNIZED DRUG - OTHER] PO SCH (21:02)
--- NOTE | 2021-03-05 06:30 | NUR ---
MS RN CLOSING NOTES PATIENT IN ROOM A/OX4 ABLE TO MAKE NEEDS KNOWN. TOLERATING ROOM AIR WELL WITH NO SOB. NO IV ACCESS. SAFETY MEASURES IN PLACE: BED IN LOWEST LOCKED POSITION, SIDE RAILS UPX2, CALL LIGHT WITHIN EASY REACH. PATIENT IN STABLE CONDITION, WILL ENDORSE PLAN OF CARE.
--- NOTE | 2021-03-05 07:45 | NUR ---
MS RN OPENING NOTES PATIENT IS ON BED AWAKE ALERT AND ORIENTEDX4 ABLE TO MAKE NEEDS KNOWN. TOLERATING ROOM AIR WELL WITH NO SOB. NO IV ACCESS. NO COMPLAINED OF PAIN NOTED AT THIS TIME.
[2021-03-05] MEDS: LORAZEPAM 1 MG TABLET PO SCH ×3 (08:35→16:37)
--- NOTE | 2021-03-05 18:55 | NUR ---
MS RN CLOSING NOTE PATIENT IS AWAKE IN BED. A/O X4. PATIENT STABLE ON ROOM AIR. NO SOB NOTED. NO S/S OF RESPIRATORY DISTRESS. PATIENT IS AMBULATORY WITH [facility]. PT HAS NO COMPLAINED PAIN AT THIS TIME. NO IV ACCESS NOTED DUE TO CLINICAL TRIAL STATUS. PATIENT VERBALIZED HIS GONNA IN HEART ATTACK. SAFETY MEASURES MAINTAINED. BED IN LOWEST LOCKED POSITION, HOB ELEVATED, SIDE RAILS UP X2. CALL LIGHT AND TABLE WITHIN REACH. WILL ENDORSE TO NIGHT NURSE FOR JOEL
--- NOTE | 2021-03-05 19:30 | NUR ---
RN OPENING NOTES Patient was seen awake sitting on sitting on his bed. Patient's alert and oriented x4. Patient's on room air with no respiratory distress noted. Patient has no IV access due to his clinical trial status. Patient's noted with no signs and symptoms of acute distress. Safety measures are in place: Bed locked, side rails up x3, and call light is within easy reach of the patient. Will continue to monitor the patient.
[2021-03-05 20:00] VITALS: BP 138/78
[2021-03-05] MEDS: [UNRECOGNIZED DRUG - OTHER] PO SCH (21:00)
[2021-03-05] MEDS: [UNRECOGNIZED DRUG - OTHER] PO SCH (21:00)
[2021-03-05] MEDS: [UNRECOGNIZED DRUG - OTHER] PO SCH (21:00)
--- NOTE | 2021-03-05 21:10 | NUR ---
RN NOTES PATIENT TOOK ALL OF HIS SCHEDULED INVESTIGATIONAL MEDS AT 2100.
--- NOTE | 2021-03-06 07:30 | NUR ---
RN CLOSING NOTES Patient was last seen awake in his room. Patient's alert and oriented x4. Patient's on room air with no respiratory distress noted. Patient has no IV access due to his clinical trial status. Patient's noted with no signs and symptoms of acute distress. Safety measures are in place: Bed locked, side rails up x2, and call light is within easy reach of the patient. Endorsed care to the day shift nurse.
[2021-03-06 08:00] VITALS: BP 100/51
--- NOTE | 2021-03-06 08:02 | NUR ---
MS/RN OPENING NOTES RECEIVED PATIENT IN BED, ASLEEP BUT WAKES UP WHEN PROMPTED. A CLINICAL TRIAL PATIENT. ALERT AND ORIENTED X4, ABLE TO MAKE NEEDS KNOWN. NO RESPIRATORY DISTRESS NOTED, NO DISCOMFORTS REPORTED AT THIS TIME. AMBULATORY. NO IV ACCESS. SAFETY PRECAUTIONS IN PLACED. BED LOCKED IN LOWEST POSITION, CALL LIGHT WITHIN REACH. WILL CONTINUE TO MONITOR.
[2021-03-06] MEDS: LORAZEPAM 1 MG TABLET PO SCH ×3 (09:06→17:52)
[2021-03-06 16:00] VITALS: BP 115/62
--- NOTE | 2021-03-06 19:28 | NUR ---
MS/RN CLOSING NOTES PATIENT IN BED, A CLINICAL TRIAL PATIENT. ALERT AND ORIENTED X4, ABLE TO MAKE NEEDS KNOWN. NO RESPIRATORY DISTRESS NOTED, NO DISCOMFORTS REPORTED AT THIS TIME. AMBULATORY. NO IV ACCESS. SAFETY PRECAUTIONS IN PLACED. BED LOCKED IN LOWEST POSITION, CALL LIGHT WITHIN REACH. WILL ENDORSE TO THE NEXT SHIFT FOR CONTINUITY OF CARE.
--- NOTE | 2021-03-06 19:30 | NUR ---
MS/RN OPENING NOTES RECEIVED PATIENT IN BED RESTING. PT ALERT AND ORIENTED X4, ABLE TO MAKE NEEDS KNOWN. NO RESPIRATORY DISTRESS NOTED, NO DISCOMFORTS REPORTED AT THIS TIME. AMBULATORY. NO IV ACCESS. SAFETY PRECAUTIONS IN PLACED. BED LOCKED IN LOWEST POSITION, CALL LIGHT WITHIN REACH. WILL CONTINUE TO MONITOR.
[2021-03-06 20:00] VITALS: BP 131/70
[2021-03-06] MEDS: [UNRECOGNIZED DRUG - OTHER] PO SCH (20:46)
[2021-03-06] MEDS: [UNRECOGNIZED DRUG - OTHER] PO SCH (20:46)
[2021-03-06] MEDS: [UNRECOGNIZED DRUG - OTHER] PO SCH (20:46)
--- NOTE | 2021-03-07 06:36 | NUR ---
MS/RN CLOSING NOTES PATIENT IN BED RESTING. ALERT AND ORIENTED X4, ABLE TO MAKE NEEDS KNOWN. NO RESPIRATORY DISTRESS NOTED, NO DISCOMFORTS REPORTED AT THIS TIME. AMBULATORY. NO IV ACCESS. SAFETY PRECAUTIONS IN PLACED. BED LOCKED IN LOWEST POSITION, CALL LIGHT WITHIN REACH. WILL ENDORSE TO DAY SHIFT NURSE.
[2021-03-07 08:00] VITALS: BP 100/54
[2021-03-07] MEDS: LORAZEPAM 1 MG TABLET PO SCH ×3 (09:48→17:40)
[2021-03-07 16:00] VITALS: BP 135/92
--- NOTE | 2021-03-07 19:27 | NUR ---
MS RN OPENING NOTE: RECEIVED PATIENT AWAKE IN BED, BED IN LOW POSITION, CALL LIGHTS WITHIN REACH, NO COMPLAIN OF PAIN AND DISCOMFORT AT THIS TIME, PATIENT IS A/O X4 QABLE TO MAKE NEEDS KNOWN, ON CLINICAL TRIAL, REMIND THE RESIDENT TO USE THE CALL LIGHTS WHEN NEEDED ASSISTANCE, WILL CONTINUE TO MONITOR.
[2021-03-07 20:00] VITALS: BP 141/85
[2021-03-07] MEDS: [UNRECOGNIZED DRUG - OTHER] PO SCH (21:00)
[2021-03-07] MEDS: [UNRECOGNIZED DRUG - OTHER] PO SCH (21:00)
[2021-03-07] MEDS: [UNRECOGNIZED DRUG - OTHER] PO SCH (21:00)
[2021-03-07 23:04] VITALS: BP 141/85
--- NOTE | 2021-03-08 07:34 | NUR ---
MS/RN OPENING NOTES RECEIVED PATIENT IN BED AWAKE. A CLINICAL TRIAL PATIENT. ALERT AND ORIENTED X4, ABLE TO MAKE NEEDS KNOWN. NO RESPIRATORY DISTRESS NOTED, NO DISCOMFORTS REPORTED AT THIS TIME. AMBULATORY. NO IV ACCESS. SAFETY PRECAUTIONS IN PLACED. BED LOCKED IN LOWEST POSITION, CALL LIGHT WITHIN REACH. WILL CONTINUE TO MONITOR. Addendum: 03/08/21 at 0753 by MARY LYNN RN MS RN CLOSING NOTES: WRONG PATIENT INTENDED FOR 315
[2021-03-08 08:00] VITALS: BP 135/89
[2021-03-08] MEDS: LORAZEPAM 1 MG TABLET PO SCH ×3 (09:09→17:29)
[2021-03-08 16:00] VITALS: BP 122/88
--- NOTE | 2021-03-08 19:21 | NUR ---
MS RN OPENING NOTES: RECEIVED PATIENT AWAKE IN BED, BED IN LOW POSITION, CALL LIGHTS WITHIN REACH, NO COMPLAIN OF PAIN AND DISCOMFORT AT THIS TIME, PATIENT IS AMBULATORY, ON CLINICAL TRIAL, NO RFSP. DISTRESS OBSERVED, WILL CONTINUE TO MONITOR.
[2021-03-08 19:56] VITALS: BP 143/88
[2021-03-08] MEDS: [UNRECOGNIZED DRUG - OTHER] PO SCH (20:59)
[2021-03-08] MEDS: [UNRECOGNIZED DRUG - OTHER] PO SCH (20:59)
[2021-03-08] MEDS: [UNRECOGNIZED DRUG - OTHER] PO SCH (20:59)
--- NOTE | 2021-03-09 06:27 | NUR ---
MS RN CLOSING NOTES: PATIENT WAS IN ROOM SLEEP IN BED COMFORTABLY, AROUSABLE TO STIMULI, NO COMPLAIN OF PAIN AND DISCOMFORT, AMBULATORY WITH SUPERVISION, ON INVESTIGATIONAL MEDICATION, COMPLIANCE, BED IN LOW POSITION, CALL LIGHTS WITHIN REACH, REMIND PATIENT TO USE CALLLIGHTS WHEN NEEDED ASSISTANCE.
--- NOTE | 2021-03-09 07:10 | NUR ---
RN OPENING NOTE RECEIVED PT AWAKE IN BED AT THIS TIME. A/O X4. ABLE TO COMMUNICATE NEEDS. NO SOB NOTED. NO S/O ANY ACUTE DISTRESS NOTED, NO C/O OF PAIN. BREATHING EVEN AND UNLABORED ON RA. NO IV ACCESS NOTED DUE TO CLINICAL TRIAL STATUS. PT DENIES SI/HI AND VISUAL/AUDITORY HALLUCINATION. NO C/O TREMORS, EPS OR AKATHISIA. SAFETY PRECAUTIONS IN PLACE AND MAINTAINED AT ALL TIMES. BED IN LOWEST POSITION, HOB ELEVATED, SIDE RAILS UP X2. CALL LIGHT AND TABLE WITHIN REACH. WILL CONTINUE TO MONITOR
[2021-03-09] MEDS: LORAZEPAM 1 MG TABLET PO SCH ×3 (09:16→16:53)
--- NOTE | 2021-03-09 14:44 | NUR ---
m/s slate handler: notes dr. raymond called with order to decrease ativan 2mg po to bid. order read back and carried out.
[2021-03-09 16:00] VITALS: BP 106/53
--- NOTE | 2021-03-09 18:25 | NUR ---
RN CLOSING NOTES PT RESTING IN BED AT THIS TIME. EASY TO AROUSE. PT REMAINED STABLE THROUGHOUT SHIFT. ALL NEEDS, MEDICATIONS, AND CARE ADMINISTERED ANTICIPATED PER ORDER. PT DENIES SI/HI, VISUAL AND AUDITORY HALLUCINATION. NO COMPLAINS OF TREMORS, EPS, OR AKATHISIA. SAFETY PRECAUTIONS IN PLACE AND MAINTAINED AT ALL TIMES. BED IN LOWEST LOCKED POSITION, HOB ELEVATED, SIDE RAILS UP X 2. CALL LIGHT AND TABLE WITHIN REACH. WILL ENDORSE TO FILTRATION PLANT OPERATOR NURSE FOR JOEL
--- NOTE | 2021-03-09 19:50 | NUR ---
MS RN OPENING NOTE RECEIVED PT AWAKE IN BED. A/O X4. PT STABLE ON ROOM AIR. NO SOB NOTED. NO S/S OF RESPIRATORY DISTRESS. PT IS AMBULATORY WITH [facility] PT HAS NO C/O PAIN AT THIS TIME. NO IV ACCESS NOTED DUE TO CLINICAL TRIAL STATUS. PT DENIES SI/HI AND VISUAL/AUDITORY HALLUCINATIONS AT THIS TIME. PT HAS NO C/O TREMORS, AKATHISIA, OR EPS. SAFETY MEASURES MAINTAINED. BED IN LOWEST LOCKED POSITION, HOB ELEVATED, SIDE RAILS UP X2. CALL LIGHT AND TABLE WITHIN REACH. WILL CONTINUE WITH PLAN OF CARE.
[2021-03-09 20:00] VITALS: BP 102/57
[2021-03-09] MEDS: [UNRECOGNIZED DRUG - OTHER] PO SCH (20:59)
[2021-03-09] MEDS: [UNRECOGNIZED DRUG - OTHER] PO SCH (21:00)
[2021-03-09] MEDS: [UNRECOGNIZED DRUG - OTHER] PO SCH (21:00)
--- NOTE | 2021-03-10 06:25 | NUR ---
MS RN CLOSING NOTE PT IS AWAKE IN BED. A/O X4. PT STABLE ON ROOM AIR. NO SOB NOTED. NO S/S OF RESPIRATORY DISTRESS. PT HAS NO C/O PAIN AT THIS TIME. NO IV ACCESS NOTED DUE TO CLINICAL TRIAL STATUS. PT DENIES SI/HI AND VISUAL/AUDITORY HALLUCINATIONS AT THIS TIME. PT HAS NO C/O TREMORS, AKATHISIA, OR EPS. ALL NEEDS HAVE BEEN MET. SAFETY PRECAUTIONS MAINTAINED AT ALL TIMES. BED IN LOWEST LOCKED POSITION, HOB ELEVATED, SIDE RAILS UP X2. CALL LIGHT AND TABLE WITHIN REACH. WILL ENDORSE TO ONCOMING NURSE FOR JOEL.
[2021-03-10 08:19] VITALS: BP 109/78
--- NOTE | 2021-03-10 09:00 | NUR ---
RN NOTES PATIENT CURRENTLY IN THE ROOM, AWAKE AND VERBALLY RESPONSIVE. BREATHING EVEN AND UNLABORED, TOLERATING ROOM AIR. ROUTINE ATIVAN ADMINISTERED INDICATED. NO COMPLAINTS AT THIS TIME. WILL CONTINUE TO MONITOR.
[2021-03-10] MEDS: LORAZEPAM 1 MG TABLET PO SCH ×2 (09:01→16:22)
--- NOTE | 2021-03-10 13:15 | NUR ---
RN NOTES RECEIVED CALL FROM DR. ZAMORA, CONFIRMED THAT PATIENT IS ON ATIVAN 2MG SINCE YESTERDAY ONLY.
[2021-03-10 16:00] VITALS: BP 109/79
--- NOTE | 2021-03-10 19:05 | NUR ---
RN NOTES PATIENT RESTING IN BED, AWAKE AND VERBALLY RESPONSIVE. ENDORSED ORDERS TO LIFE INSURANCE UNDERWRITER RN TO HOLD ATIVAN AND AMBIEN; INVESTIGATIONAL DRUG W/ CHARGE NURSE.
--- NOTE | 2021-03-10 19:30 | NUR ---
MS RN NOTES Patient not in room. Signed out to smoke. Will check back.
[2021-03-10 20:00] VITALS: BP 94/65
--- NOTE | 2021-03-10 20:51 | NUR ---
MS MALDONADO NOTES Patient in room now. Reminded of NPO status post 2199. Patient verbalizes understanding. Addendum: 03/11/21 at 0633 by NIKO KULKARNI RN error
[2021-03-10] MEDS: [UNRECOGNIZED DRUG - OTHER] PO SCH (21:00)
[2021-03-10] MEDS: [UNRECOGNIZED DRUG - OTHER] PO SCH (21:00)
[2021-03-10] MEDS: [UNRECOGNIZED DRUG - OTHER] PO SCH (21:00)
--- NOTE | 2021-03-11 06:31 | NUR ---
MS RN CLOSING NOTES Patient is A&Ox4. VSS. Denies pain or discomfort. No significant behaviors noted. Patient did report difficulty sleeping but per MD order hold greg allen. Denies side effect from investigational medication... last dose given last night 2100.
--- NOTE | 2021-03-11 07:10 | NUR ---
ms rn received on bed, awake,alert,oriented x4,not in any form of distress, respirations even and unlabored,no sob noted, clinical trial patient of dr. raymond, all needs attended.
[2021-03-11 08:00] VITALS: BP 90/47
--- NOTE | 2021-03-11 09:00 | NUR ---
ms ivory breakfast served,due meds given,tolerated well.
[2021-03-11] MEDS: LORAZEPAM 1 MG TABLET PO SCH ×3 (09:39→18:30)
[2021-03-11] MEDS ORDERED: LORAZEPAM 1 MG TABLET FOR AGITATION/ANXIETY/HOSTILITY PO PRN (12:00)
[2021-03-11] MEDS ORDERED: ZOLPIDEM TARTRATE 10 MG TABLET PO PRN (12:00)
[2021-03-11] MEDS ORDERED: LORAZEPAM 1 MG TABLET PO SCH ×2 (13:00→14:00)
[2021-03-11 16:00] VITALS: BP 98/65
--- NOTE | 2021-03-11 16:33 | NUR ---
ms rn on bed, no distress noted.
--- NOTE | 2021-03-11 18:03 | NUR ---
ms dianelys was seen by w/ orders made and carried out.
--- NOTE | 2021-03-11 20:05 | NUR ---
MS RN OPENING NOTES: RECEIVED PATIENT SLEEP IN BED COMFORTABLY, AROUSABLE TO STIMULI, BED IN LOW POSITION, CALL LIGHTS WITHIN REACH, NO COMPLAIN OF PAIN AND DISCOMFORT AT THIS TIME, CLINICAL TRIAL , ON INVESTIGATIONAL MEDICATION, KEPT CLEAN AND DRY, ALL NEEDS MET, WILL CONTINUE TO MONITOR.
[2021-03-11 20:21] VITALS: BP 102/56
--- NOTE | 2021-03-12 06:19 | NUR ---
MS RN CLOSING NOTES: PATIENT PLACED ON BED COMFORTABLY, BED IN LOW POSITION, CALL LIGHTS WITHIN REACH, NO COMPLAIN OF PAIN AND DISCOMFORT AT THIS TIME, AMBULATORY AND ABLE TO MAKE NEEDS KNOWN, PATIENT ON CLINICAL TRIAL, ALL NEEDS MET, KEPT CLEAN AND DRY , ENDORSE TO INCOMING SHIFT.
--- NOTE | 2021-03-12 07:20 | NUR ---
ms rn received on bed, awake,alert,oriented x4,not in any form of distress, respirations even and unlabored,no sob noted, clinical trial pt, denies pain at this time, will monitor patient's condition.
--- NOTE | 2021-03-12 09:40 | NUR ---
ms ivory breakfast served due meds given,tolerated well.
[2021-03-12] MEDS: LORAZEPAM 1 MG TABLET PO SCH ×2 (10:07→17:50)
--- NOTE | 2021-03-12 17:56 | NUR ---
ms rn on bed, no dostress noted,all needs attended.no change in condition.
--- NOTE | 2021-03-12 19:37 | NUR ---
MS RN OPENING NOTES: RECEIVED PATIENT AWAKE I BED, BED IN LOW POSITION, CALL LIGHTS WITHIN REACH, IAM COMPLAIN OF PAIN AND DISCOMFORT AT THIS TIME,AMBULATORY, PATIENT ON CLINICAL TRIAL, ALL NEEDS MET, KEPT CLEAN AND DRY, WILL CONTINUE TO MONITOR.
[2021-03-12 20:14] VITALS: BP 127/66
--- NOTE | 2021-03-13 07:25 | NUR ---
RN NOTES PATIENT SEEN IN ROOM, AWAKE AND VERBALLY RESPONSIVE. BREATHING EVEN AND UNLABORED, TOLERATING ROOM AIR. CONTINUES ON CLINICAL TRIAL. MONITORED FOR ANY ADVERSE S/E. SAFETY MEASURES IN PLACE. WILL CONTINUE TO MONITOR.
--- NOTE | 2021-03-13 07:30 | NUR ---
MS RN CLOSING NOTES: PATIENT IS AWAKE IN BED,K BED IN LOW POSITION, CALL LIGHTS WITHIN REACH, NO SOB NOTED, ALL NEEDS MET, ENDORSE TO INCOMING SHIFT.
[2021-03-13 08:16] VITALS: BP 106/66
[2021-03-13] MEDS: LORAZEPAM 1 MG TABLET PO SCH ×2 (08:40→16:33)
[2021-03-13 16:07] VITALS: BP 108/72
--- NOTE | 2021-03-13 19:20 | NUR ---
RN NOTES PATIENT CURRENTLY IN ROOM USING HIS PERSONAL CELLPHONE, NOT IN ACUTE DISTRESS. DUE MEDS GIVEN IN AM. CONTINUES ON CLINICAL TRIAL AT THIS TIME. ENDORSED TO EMAIL PRODUCTION CONSULTANT RN FOR JOEL.
--- NOTE | 2021-03-14 00:30 | NUR ---
MS RN OPENING PATIENT A/OX4. AMBULATING. NO S/S OF DISTRESS. NO C/O PAIN. SAFETY IN PLACE: BED IN LOWEST, LOCKED POSITION, CALL LIGHT WITHIN REACH. WILL CONTINUE TO MONITOR.
--- NOTE | 2021-03-14 07:45 | NUR ---
ms closing rn no significant change. endorsed care to am rn.
--- NOTE | 2021-03-14 07:50 | NUR ---
MS RN OPENING NOTES PATIENT IS IN BED RESTING, PATIENT IS IN NO ACUTE DISTRESS. SAFETY PRECAUTIONS ARE ON, BED IS LOCKED IN THE LOWEST POSITION, WITH SIDE RAILS UP, WILL CONTINUE TO MONITOR CLOSELY.
[2021-03-14 08:13] VITALS: BP 101/55
[2021-03-14] MEDS: LORAZEPAM 1 MG TABLET PO SCH ×3 (08:55→17:59)
[2021-03-14 16:13] VITALS: BP 102/70
--- NOTE | 2021-03-14 18:35 | NUR ---
MS RN CLOSING NOTES PATIENT IS IN BED RESTING, PATIENT IS IN NO ACUTE DISTRESS. SAFETY PRECAUTIONS ARE ON, BED IS LOCKED IN THE LOWEST POSITION, WITH SIDE RAILS UP, ENDORSE PATIENT TO CERAMIC RESEARCH ENGINEER NURSE FOR JOEL.
--- NOTE | 2021-03-14 19:49 | NUR ---
MS RN NOTE PATIENT HAS SCHEDULED ATIVAN, PULLED OUT MEDICATION, WENT TO GIVE PATIENT THE MEDICATION PATIENT WAS NOT IN THE ROOM, WENT BACK AGAIN PATIENT WAS NOT IN THE ROOM, PATIENT WAS GONE FOR TOW HOURS, PATIENT CAME BACK AND KITCHEN ACCIDENTALLY GRABBED THE MEDICATION, CALLED TO NOTIFY THE PHARMACY AFTER HOURS, PHARMACY TOLD TO MAKE AN ORDER FOR ONE TIME ATIVAN.
[2021-03-14 20:00] VITALS: BP 108/70
[2021-03-14] MEDS ORDERED: LORAZEPAM 1 MG TABLET PO ONE (20:00)
--- NOTE | 2021-03-14 20:02 | NUR ---
MS RN NOTE PATIENT DID NOT GET HIS SECOND DOSE OF ATIVAN, PATIENT WAS NOT PRESENT FOR TWO HOURS, MEDICATION GOT DISCARDED BY ACCIDENT, SPOKE WITH PHARMACY, PHARMACY EXPLAINED THAT ONE TIME ORDER OF ATIVAN NEEDS TO BE GIVEN, ENDORSED TO [facility] INSURANCE PREMIUM AUDITOR NURSE TO ADMINISTER NEW ORDER OF ATIVAN AT 1999.
--- NOTE | 2021-03-14 20:40 | NUR ---
MS/TELE/RN PATIENT IS IN ROOM AWAKE, ALERT, ORIENTED, COMFORTABLE, NO C/O PAIN, NO DISTRESS NOTED, ATIVAN PO WAS GIVEN ORDERED, WILL MONITOR.
--- NOTE | 2021-03-15 06:20 | NUR ---
MS/TELE/RN PATIENT IS STILL SLEEPING, APPEAR COMFORTABLE, NO SIGNS OF DISTRESS NOTED, CALL LIGHT IN REACH, ALL NEEDS ATTENDED AT THIS TIME, WILL CONTINUE TO MONITOR.
[2021-03-15] MEDS: LORAZEPAM 1 MG TABLET PO SCH ×2 (09:00→16:21)
--- NOTE | 2021-03-15 09:44 | NUR ---
MS RN NOTE PATIENT REFUSED MORNING DOSE OF ATIVAN
[2021-03-15 16:20] VITALS: BP 140/85
[2021-03-15 20:00] VITALS: BP 140/87
--- NOTE | 2021-03-15 20:04 | NUR ---
MS RN CLOSING NOTES PATIENT IS IN BED RESTING, PATIENT IS IN NO ACUTE DISTRESS. SAFETY PRECAUTIONS ARE ON, BED IS LOCKED IN THE LOWEST POSITION, WITH SIDE RAILS UP, ENDORSE PATIENT TO WHEEL ALIGNMENT MECHANIC NURSE FOR JOEL.
--- NOTE | 2021-03-15 22:30 | NUR ---
dr. henderson called. informed patient reports feeling anxious. feels like heart rate is fast. reports he is afraid of people coming to get him. patient has some paranoid delusions. patient is anxious cooperative at this time. but upon review of chart has not been on any antipsychotic medications since study medication concluded. left message with segundo. awaiting return call.
--- NOTE | 2021-03-15 23:45 | NUR ---
dr. johnston has not returned phone call. checked on patient, patient in room reports he feels a bit better. he is speaking to a friend on the phone. patient appears more relaxed and less anxious. reinforced the safety of hospital environment/room. verbalized understanding to call for assistance if needed. will cont to monitor for mood and behavior.
--- NOTE | 2021-03-16 03:20 | NUR ---
Rapid Response. patient found in bathroom holding pipe with tinfoil with burned unknown substance. patient responsive to light pain. pt breathing found to be shallow but pulse present.l rapid response called. 0325 code team arrived at this point patient placed on 15 liter non rebreather mask. vitals signs read 135/98 hr 94, placed on bus monitor sinus rhythm seen. spo2 98%. patient breathing at 6breaths per minute. 0328 iv started to right forearm 20 gauge. flushed patent. 0332 narcan x1 administered 0335 patient reacted to narcan now awake alert disoriented. reoriented to place time and situation. new vital signs 135/98, heart rate 116 sinus tachycardia. spo2 98% on room air. patient breaths now at 20. 0342 patient anxious patient refusing monitor. and ripped off leads. patient being monitored continuously for behavior. 0344 pt removed iv access to right forearm and began bleeding on bed. pt ambulating to bathroom states. "i just don't want this in me it freaks me out." pt admits to taking fentanyl because he was frustrated that he couldn't sleep. pt denies attempting to overdose on purpose. denies si/hi at this time. "im very sorry im just in disbelief." patient to be monitored continuously with one to one.
[2021-03-16] MEDS ORDERED: NALOXONE HCL 0.4 MG/ML AMPUL ONE (03:29)
[2021-03-16] MEDS ORDERED: NALOXONE HCL 0.4 MG/ML AMPUL IV ONE (04:00)
[2021-03-16 04:02] VITALS: BP 135/98
--- NOTE | 2021-03-16 04:11 | NUR ---
dr. johnston called and left message briefly describing patient found od'ing in bathroom asking for a return call. Addendum: 03/16/21 at 0418 by KVNG SUAREZ RN call made to [facility] cell phone. at [phone] attempted to call office phone at [phone] but message box full not allowing me to page.
--- NOTE | 2021-03-16 07:15 | NUR ---
REPORT GIVEN TO DANIELLE MALDONADO. QUESTIONS CONCERNS ADDRESSED. PATIENT IN BED IN NO APPARENT DISTRESS SEEN WITH EYES CLOSED RR OF 16. SITTER FROM WIRE MESH KNITTER AT THE BEDSIDE.
[2021-03-16] MEDS: LORAZEPAM 1 MG TABLET PO SCH ×2 (08:22→16:42)
[2021-03-16 10:18] VITALS: BP 95/61
[2021-03-16 16:39] VITALS: BP 109/80
[2021-03-16] MEDS: MAG HYDROX/AL HYDROX/SIMETH 30 ML UDC PO PRN (17:59)
[2021-03-16 20:00] VITALS: BP 128/83
--- NOTE | 2021-03-16 20:00 | NUR ---
rn opening note per report from jed ivory earlier preston called and ordered some psychiatric medications. pt seen laying in bed. a/0x4 appears depressed disheveled. patient here for clinical trial. patient denies possesion of recreational drugs. states that he threw all drugs away that he had in his possession. pt informed that door to remain open throughout shift for kvngiotring, informed he wont be able to leave unit unsupervised. verbalized understanding. patient denies si/hi at this time. pt verbalized understanding to use call light to call for assistance. will cont to monitor mood and behavior.
[2021-03-16] MEDS: OLANZAPINE 10 MG TABLET PO SCH (21:40)
[2021-03-16] MEDS: MIRTAZAPINE 15 MG TABLET PO SCH (21:41)
[2021-03-16] MEDS ORDERED: QUETIAPINE FUMARATE 100 MG TABLET PO ONE (22:00)
--- NOTE | 2021-03-17 07:01 | NUR ---
RN CLOSING NOTE PATIENT SLEPT 10 HOURS. PT COOPERATIVE. MED COMPLIANT. PT CURRENTLY IN BED IN NO APPARENT DISTRESS BREATHING REGULAR AND UNLABORED. SKIN COLOR IS PINK. WILL ENDORSE TO ONCOMING SHIFT.
--- NOTE | 2021-03-17 07:17 | NUR ---
RN OPENING NOTE PATIENT SLEPT FOR 10 HRS, PT APPEARS COOPERATIVE. PT CURRENTLY IN BED;NO APPARENT DISTRESS BREATHING REGULAR AND UNLABORED. SKIN COLOR IS PINK.
[2021-03-17 08:00] VITALS: BP 97/52
[2021-03-17] MEDS: LORAZEPAM 1 MG TABLET PO SCH ×2 (09:08→17:20)
[2021-03-17 16:00] VITALS: BP 87/39
--- NOTE | 2021-03-17 18:17 | NUR ---
RN OPENING NOTE PATIENT SLEPT FOR 10 HRS, PT APPEARS COOPERATIVE. PT CURRENTLY IN BED;NO APPARENT DISTRESS BREATHING REGULAR AND UNLABORED. SKIN COLOR IS PINK. CALL LIGHT WITHIN REACH AND ANSWERED PROMPTLY,
[2021-03-17 20:09] VITALS: BP 92/50
[2021-03-17] MEDS: OLANZAPINE 10 MG TABLET PO SCH (21:29)
[2021-03-17] MEDS: MIRTAZAPINE 15 MG TABLET PO SCH (21:30)
[2021-03-17] MEDS ORDERED: QUETIAPINE FUMARATE 100 MG TABLET PO SCH ×2 (22:00)
--- NOTE | 2021-03-18 07:28 | NUR ---
MS RN OPENING NOTE RECEIVED PT AWAKE IN BED IN NO ACUTE SIGN SOF DISTRESS. A/O X4, ABLE TO MAKE NEEDS KNOWN, DENIES SI/HI AND VISUAL/AUDITORY HALLUCINATIONS AT THIS TIME. STABLE ON ROOM AIR, BREATHING EVEN AND UNLABORED. NO IV ACCESS NOTED DUE TO CLINICAL TRIAL PROTOCOL. CALL LIGHT WITHIN REACH. WILL CONTINUE WITH PLAN OF CARE.
[2021-03-18 08:00] VITALS: BP 90/41
[2021-03-18 16:00] VITALS: BP 92/55
[2021-03-18] MEDS ORDERED: LORAZEPAM 1 MG TABLET PO ONE (19:00)
--- NOTE | 2021-03-18 19:00 | NUR ---
Report from RN day shift stated patient is anxious and the MD just ordered Ativan to be given X1 will wait for the pharmcy to verify and then administer spoke to patient about the procedure once the MD has ordered the medicine and he understands he is alert sitting on his bed good eye contact speech clear
--- NOTE | 2021-03-18 19:01 | NUR ---
MS RN CLOSING NOTE PT RESTING IN BED AT THIS TIME. A/O X4. ABLE TO MAKE NEEDS KNOWN, VERY ANXIOUS AND ASKING FOR ANTI ANXIETY MEDICATION AND COVID TEST. DR ZAMORA MADE AWARE WITH ORDER TO GIVE ATIVAN 2MG PO X1 AND NO COVID TEST. PT DENIES SI/HI AND VISUAL/AUDITORY HALLUCINATIONS DURING THE DAY. PT HAS NO C/O TREMORS, AKATHISIA, OR EPS. ALL NEEDS HAVE BEEN MET. SAFETY PRECAUTIONS MAINTAINED: BED IN LOWEST LOCKED POSITION, SIDE RAILS UP X2. CALL LIGHT AND TABLE WITHIN EASY REACH OF. ENDORSED TO ALL PURPOSE CLERK NURSE SHARAD ONCE ATIVAN IS VERIFIED BY PHARMACY.
[2021-03-18 20:00] VITALS: BP 103/63
--- NOTE | 2021-03-18 21:00 | NUR ---
patient awakens easily and alert when name spoken resp even and unlabored side rails up bedalarm on
[2021-03-18] MEDS: OLANZAPINE 10 MG TABLET PO SCH (21:47)
[2021-03-18] MEDS: MIRTAZAPINE 15 MG TABLET PO SCH (21:48)
[2021-03-18] MEDS ORDERED: QUETIAPINE FUMARATE 100 MG TABLET PO SCH (22:00)
--- NOTE | 2021-03-19 04:40 | NUR ---
closing notes: Ativan a 1 X order given @ 19:40 for anxiety was effective. slet until 23:00 and then with nurse @ side went to have a cigerette. Conversing with nurse about being discharged and where to go and how he want to cut back on smoking, and the weather at night. he was in a friendly mode. good eye contact smiling. back to his room in bed by 2400 and he went to sleep, noted he changes his own position from side to side. slept 8 hours this 12 hours
[2021-03-19 08:00] VITALS: BP 141/82
--- NOTE | 2021-03-19 12:38 | NUR ---
RN DISCHARGED NOTES PT DISCHARGED HOME IN STABLE CONDITION. A/O X4, ABLE TO MAKE NEED KNOWN. V/S TAKEN, STABLE AND RECORDED. PT ON ROOM AIR, TOLERATING WELL AND HAS NO IV ACCESS. NAME ARMBAND REMOVED. HEALTH TEACHINGS/SMOKING CESSATION EDUCATION GIVEN TO PT AND VERBALIZED UNDERSTANDING. PT LEFT UNIT AT [address] ZAMORA OFFICE ACCOMPANIED BY NATASHA ( STAFF FROM DR ZAMORA OFFICE). DR ZAMORA ON UNIT WHEN PT LEFT AND WILL MEET PT HIM IN HIS OFFICE. CHARGE NURSE AWARE OF DISCHARGE.
== END 2021-03-19 12:35 | disposition home or self-care (01) | DRG 951 ==
LOC: MED 13:43
PROVIDERS: ADMIT Psychiatry & Neurology Psychiatry; ATTEND Psychiatry & Neurology Psychiatry
DX: Z00.6 Encounter for examination for normal comparison and control in clinical research program (principal); F25.9 Schizoaffective disorder, unspecified; Z20.822 Contact with and (suspected) exposure to COVID-19
CPT/HCPCS: 87081-TC; G0378; J2310; Q0163